=== PATIENT | female | born 1935 | race Caucasian/White ===

== ENCOUNTER 2021-09-20 20:24 | Inpatient (IN) | payer MEDICARE ==
[2021-09-20] MEDS ORDERED: ASPIRIN 81 MG PO STA (20:56)
--- NOTE | 2021-09-20 21:04 | ED ---
General Adult HPI - General Chief complaint: Chest Pain Stated complaint: Chest Pain Time Seen by Provider: 09/20/21 20:48 Source: patient, EMS, RN notes reviewed Mode of arrival: EMS Limitations: no limitations - History of Present Illness Initial comments: 85-year-old female presents to the emergency department via EMS for evaluation of chest pain that resolved prior to arrival. Patient states she was at rest when she developed tightness in her chest that extended diffusely across the anterior chest and radiated down both arms. States she had some shortness of breath at that time, though no diaphoresis, dizziness, nausea, or vomiting. Has had some excessive belching. Reports history of CABG and subsequent stent placement. Takes an anti-hypertensive medication, but recently reduced it from three times daily to twice. Denies any other medication changes. - Related Data Home Medications Medication Instructions Recorded Confirmed Ascorbic Acid [Vitamin C] 1,000 mg PO DAILY 09/21/21 09/21/21 Aspirin [Adult Low Dose Aspirin EC] 81 mg PO DAILY 09/21/21 09/21/21 Calcium Carb/Vitamin D3/Vit K1 1 tab PO BID 09/21/21 09/21/21 [Calcium-Vit D3-K1 650 mg Chew] Cholecalciferol [Vitamin D3 (25 50 mcg PO DAILY 09/21/21 09/21/21 Mcg = 1000 Iu)] Co Q-10 100mg 100 mg PO DAILY 09/21/21 09/21/21 Ezetimibe [Zetia] 10 mg PO DAILY 09/21/21 09/21/21 Labetalol [Trandate] 100 mg PO BID 09/21/21 09/21/21 Levothyroxine Sodium [Synthroid] 112 mcg PO AC-[id number] 09/21/21 09/21/21 Vitamin B-12 Oral Drops 125mcg/Drop 125 mcg PO DAILY 09/21/21 09/21/21 Zinc Gluconate [Zinc] 50 mg PO DAILY 09/21/21 09/21/21 glipiZIDE [Glucotrol] 5 mg PO DAILY 09/21/21 09/21/21 Allergies Allergy/AdvReac Type Severity Reaction Status Date / Time amlodipine Allergy Unknown Verified 09/21/21 11:52 aspirin Allergy Unknown Verified 09/21/21 11:52 atorvastatin [From Lipitor] Allergy Unknown Verified 09/21/21 11:52 cephalexin Allergy Unknown Verified 09/21/21 11:52 ciprofloxacin Allergy Unknown Verified 09/21/21 11:52 colesevelam [From WelChol] Allergy Unknown Verified 09/21/21 11:52 contact metal agent Allergy Unknown Verified 09/21/21 11:52 doxycycline Allergy Unknown Verified 09/21/21 11:52 ezetimibe [From Zetia] Allergy Unknown Verified 09/21/21 11:52 Iodine and Iodide Containing Allergy Unknown Verified 09/21/21 11:52 Produc lanolin Allergy Unknown Verified 09/21/21 11:52 metformin Allergy Unknown Verified 09/21/21 11:52 nystatin [From Bio-Statin] Allergy Unknown Verified 09/21/21 11:52 Penicillins Allergy Unknown Verified 09/21/21 11:52 pioglitazone [From Actos] Allergy Unknown Verified 09/21/21 11:52 rosuvastatin [From Crestor] Allergy Unknown Verified 09/21/21 11:52 [id number]-HzA Reductase Allergy Unknown Verified 09/21/21 11:52 Inhibitor Sulfa (Sulfonamide Allergy Unknown Verified 09/21/21 11:52 Antibiotics) baking soda Allergy Unknown Uncoded 09/21/21 11:53 clonidine patch Allergy Unknown Uncoded 09/21/21 11:53 metal Allergy Unknown Uncoded 09/21/21 11:54 vitron-c Allergy Unknown Uncoded 09/21/21 11:55 Review of Systems ROS Statement: Those systems with pertinent positive or pertinent negative responses have been documented in the HPI. ROS Other: All systems not noted in ROS Statement are negative. Past Medical History Additional Past Medical History / Comment(s): bypass 2002, stent 2013, History of Any Multi-Drug Resistant Organisms: None Reported Past Surgical History: Coronary Bypass/CABG Past Psychological History: No Psychological Hx Reported Smoking Status: Never smoker Past Alcohol Use History: None Reported Past Drug Use History: None Reported - Past Family History Father Family Medical History: Diabetes Mellitus Mother Family Medical History: CVA/TIA General Exam Limitations: no limitations (This is a pleasant well-developed, well-nourished female in no acute distress. Initial temperature 97.8, respirations 16, blood pressure 176/107, pulse ox 93% on room air, recheck 95% room air.) General appearance: alert, in no apparent distress Eye exam: Present: normal appearance, PERRL, EOMI. Absent: scleral icterus, conjunctival injection, periorbital swelling ENT exam: Present: normal exam, normal oropharynx, mucous membranes moist Respiratory exam: Present: normal lung sounds bilaterally. Absent: respiratory distress, wheezes, rales, rhonchi, stridor, chest wall tenderness Cardiovascular Exam: Present: regular rate, normal rhythm, normal heart sounds. Absent: systolic murmur, diastolic murmur, rubs, gallop, clicks GI/Abdominal exam: Present: soft, normal bowel sounds. Absent: distended, ten derness, guarding, rebound, rigid Extremities exam: Present: normal inspection, full ROM, normal capillary refill. Absent: tenderness, pedal edema, joint swelling, calf tenderness Neurological exam: Present: alert, oriented X3, CN II-XII intact, normal gait Psychiatric exam: Present: normal affect, normal mood Skin exam: Present: warm, dry, intact, normal color. Absent: rash Course Vital Signs 09/20/21 09/20/21 09/20/21 20:32 22:41 23:01 Temperature 97.8 F Pulse Rate 84 81 93 Respiratory 16 16 16 Rate Blood Pressure 176/107 174/104 133/88 O2 Sat by Pulse 93 L 93 L 92 L Oximetry 09/21/21 09/21/21 03:47 04:33 Temperature Pulse Rate 81 76 Respiratory 16 16 Rate Blood Pressure 147/93 149/90 O2 Sat by Pulse 97 97 Oximetry - Reevaluation(s) Reevaluation #1: 09/20/21 22:30 This patient's care was discussed with my attending, Dr. Pichardo who is present at bedside to assess patient. She remains comfortable with no complaints of pain at this time. Patient is updated on admission plan of care. Medical Decision Making - Medical Decision Making This is an 85-year-old female with a past medical history of CAD, 2 vessel CABG, cardiac stents, and hypertension who presents to the emergency Department with complaints of diffuse chest pain that radiated down both arms. Patient was given sublingual nitro in route and pain resolved prior to arrival. Upon exam, patient is resting comfortably and in no acute distress. She does have mild increased shortness of breath with activity, but physical exam findings are otherwise unremarkable. Laboratory studies were obtained showing an elevated d- dimer (1.44) and elevated troponin (2.160). Her chest x-ray shows cardiomegaly and mild pulmonary vascular congestion. BNP is 622. Given patient's presenting hypertension and initial complaint of chest pain extending to both arms, CT was ordered showing presence of 4.9 cm aneurysm of the ascending aorta with no evidence of dissection. No pulmonary embolism. Patient was hypertensive upon arrival. She was given sublingual nitro, metoprolol, and Nitropaste was applied. Patient remained pain-free. Calculated HEARTScore high. She was heparinized and admitted for further evaluation and treatment. Attending: Marino - Lab Data Result diagrams: 09/20/21 20:36 09/20/21 20:36 Lab Results 09/20/21 09/20/21 09/20/21 Range/Units 20:36 20:36 20:36 WBC 9.1 (3.8-10.6) k/uL RBC 4.58 (3.80-5.40) m/uL Hgb 13.0 (11.4-16.0) gm/dL Hct 41.8 (34.0-46.0) % MCV 91.3 (80.0-100.0) fL MCH 28.4 (25.0-35.0) pg MCHC 31.1 (31.0-37.0) g/dL RDW 13.7 (11.5-15.5) % Plt Count 180 (150-450) k/uL MPV 8.1 Neutrophils % 62 % Lymphocytes % 23 % Monocytes % 9 % Eosinophils % 3 % Basophils % 1 % Neutrophils # 5.6 (1.3-7.7) k/uL Lymphocytes # 2.1 (1.0-4.8) k/uL Monocytes # 0.8 (0-1.0) k/uL Eosinophils # 0.2 (0-0.7) k/uL Basophils # 0.1 (0-0.2) k/uL PT 11.0 (9.0-12.0) sec INR 1.0 (<1.2) APTT 20.5 L (22.0-30.0) sec D-Dimer (<0.60) mg/L FEU Sodium 134 L (137-145) mmol/L Potassium 4.2 (3.5-5.1) mmol/L Chloride 105 (98-107) mmol/L Carbon Dioxide 24 (22-30) mmol/L Anion Gap 5 mmol/L BUN 18 H (7-17) mg/dL Creatinine 0.83 (0.52-1.04) mg/dL Est GFR (CKD-EPI)AfAm 74 (>60 ml/min/1.73 sqM) Est GFR (CKD-EPI)NonAf 64 (>60 ml/min/1.73 sqM) Glucose 188 H (74-99) mg/dL Calcium 8.4 (8.4-10.2) mg/dL Magnesium 1.5 L (1.6-2.3) mg/dL Total Bilirubin 0.4 (0.2-1.3) mg/dL AST 30 (14-36) U/L ALT 17 (4-34) U/L Alkaline Phosphatase 76 (38-126) U/L Troponin I (0.000-0.034) ng/mL NT-Pro-B Natriuret Pep pg/mL Total Protein 6.2 L (6.3-8.2) g/dL Albumin 3.5 (3.5-5.0) g/dL Lipase 114 (23-300) U/L Urine Color Urine Appearance (Clear) Urine pH (5.0-8.0) Ur Specific Napoleon (1.001-1.035) Urine Protein (Negative) Urine Glucose (UA) (Negative) Urine Ketones (Negative) Urine Blood (Negative) Urine Nitrite (Negative) Urine Bilirubin (Negative) Urine Urobilinogen (<2.0) mg/dL Ur Leukocyte Esterase (Negative) Urine RBC (0-5) /hpf Urine WBC (0-5) /hpf Urine WBC Clumps (None) /hpf Ur Squamous Epith Cells (0-4) /hpf Urine Bacteria (None) /hpf Hyaline Casts (0-2) /lpf Urine Mucus (None) /hpf 09/20/21 09/20/21 09/20/21 Range/Units 20:36 20:36 20:36 WBC (3.8-10.6) k/uL RBC (3.80-5.40) m/uL Hgb (11.4-16.0) gm/dL Hct (34.0-46.0) % MCV (80.0-100.0) fL MCH (25.0-35.0) pg MCHC (31.0-37.0) g/dL RDW (11.5-15.5) % Plt Count (150-450) k/uL MPV Neutrophils % % Lymphocytes % % Monocytes % % Eosinophils % % Basophils % % Neutrophils # (1.3-7.7) k/uL Lymphocytes # (1.0-4.8) k/uL Monocytes # (0-1.0) k/uL Eosinophils # (0-0.7) k/uL Basophils # (0-0.2) k/uL PT (9.0-12.0) sec INR (<1.2) APTT (22.0-30.0) sec D-Dimer 1.44 H (<0.60) mg/L FEU Sodium (137-145) mmol/L Potassium (3.5-5.1) mmol/L Chloride (98-107) mmol/L Carbon Dioxide (22-30) mmol/L Anion Gap mmol/L BUN (7-17) mg/dL Creatinine (0.52-1.04) mg/dL Est GFR (CKD-EPI)AfAm (>60 ml/min/1.73 sqM) Est GFR (CKD-EPI)NonAf (>60 ml/min/1.73 sqM) Glucose (74-99) mg/dL Calcium (8.4-10.2) mg/dL Magnesium (1.6-2.3) mg/dL Total Bilirubin (0.2-1.3) mg/dL AST (14-36) U/L ALT (4-34) U/L Alkaline Phosphatase (38-126) U/L Troponin I 2.160 H* (0.000-0.034) ng/mL NT-Pro-B Natriuret Pep 622 pg/mL Total Protein (6.3-8.2) g/dL Albumin (3.5-5.0) g/dL Lipase (23-300) U/L Urine Color Urine Appearance (Clear) Urine pH (5.0-8.0) Ur Specific Napoleon (1.001-1.035) Urine Protein (Negative) Urine Glucose (UA) (Negative) Urine Ketones (Negative) Urine Blood (Negative) Urine Nitrite (Negative) Urine Bilirubin (Negative) Urine Urobilinogen (<2.0) mg/dL Ur Leukocyte Esterase (Negative) Urine RBC (0-5) /hpf Urine WBC (0-5) /hpf Urine WBC Clumps (None) /hpf Ur Squamous Epith Cells (0-4) /hpf Urine Bacteria (None) /hpf Hyaline Casts (0-2) /lpf Urine Mucus (None) /hpf 09/20/21 Range/Units 22:08 WBC (3.8-10.6) k/uL RBC (3.80-5.40) m/uL Hgb (11.4-16.0) gm/dL Hct (34.0-46.0) % MCV (80.0-100.0) fL MCH (25.0-35.0) pg MCHC (31.0-37.0) g/dL RDW (11.5-15.5) % Plt Count (150-450) k/uL MPV Neutrophils % % Lymphocytes % % Monocytes % % Eosinophils % % Basophils % % Neutrophils # (1.3-7.7) k/uL Lymphocytes # (1.0-4.8) k/uL Monocytes # (0-1.0) k/uL Eosinophils # (0-0.7) k/uL Basophils # (0-0.2) k/uL PT (9.0-12.0) sec INR (<1.2) APTT (22.0-30.0) sec D-Dimer (<0.60) mg/L FEU Sodium (137-145) mmol/L Potassium (3.5-5.1) mmol/L Chloride (98-107) mmol/L Carbon Dioxide (22-30) mmol/L Anion Gap mmol/L BUN (7-17) mg/dL Creatinine (0.52-1.04) mg/dL Est GFR (CKD-EPI)AfAm (>60 ml/min/1.73 sqM) Est GFR (CKD-EPI)NonAf (>60 ml/min/1.73 sqM) Glucose (74-99) mg/dL Calcium (8.4-10.2) mg/dL Magnesium (1.6-2.3) mg/dL Total Bilirubin (0.2-1.3) mg/dL AST (14-36) U/L ALT (4-34) U/L Alkaline Phosphatase (38-126) U/L Troponin I (0.000-0.034) ng/mL NT-Pro-B Natriuret Pep pg/mL Total Protein (6.3-8.2) g/dL Albumin (3.5-5.0) g/dL Lipase (23-300) U/L Urine Color Light Yellow Urine Appearance Clear (Clear) Urine pH 6.0 (5.0-8.0) Ur Specific Napoleon 1.015 (1.001-1.035) Urine Protein Negative (Negative) Urine Glucose (UA) Trace H (Negative) Urine Ketones Negative (Negative) Urine Blood Negative (Negative) Urine Nitrite Negative (Negative) Urine Bilirubin Negative (Negative) Urine Urobilinogen <2.0 (<2.0) mg/dL Ur Leukocyte Esterase Large H (Negative) Urine RBC 1 (0-5) /hpf Urine WBC 26 H (0-5) /hpf Urine WBC Clumps Rare H (None) /hpf Ur Squamous Epith Cells 1 (0-4) /hpf Urine Bacteria Rare H (None) /hpf Hyaline Casts 1 (0-2) /lpf Urine Mucus Rare H (None) /hpf - EKG Data EKG shows normal: sinus rhythm Rate: normal EKG Comments: EKG obtained at 2030 shows sinus rhythm with septal myocardial infarction of indeterminate age. Ventricular rate 83, LA interval 191, QRS duration 80, QT/QTC 344/384. Interpretation abnormal ECG. - Radiology Data Radiology results: report reviewed, image reviewed Two-view chest x-ray was obtained. Report was reviewed in its entirety. Impression per Dr. Gil is cardiomegaly and mild pulmonary vascular congestion. Correlate with BNP for congestive heart failure. CT angiogram aorta was obtained. Report was reviewed in its entirety. Impression per Dr. Yun is atherosclerotic vascular disease. 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 They're agreeable information. Aneurysm of the ascending aorta. No evidence of pulmonary embolism. Colonic diverticulosis without diverticulitis. Pulmonary interstitial fibrosis and subsegmental atelectasis. Disposition Clinical Impression: Chest pain, NSTEMI (non-ST elevated myocardial infarction) Disposition: ADMITTED IP TO THIS HOSP Condition: Serious Is patient prescribed a controlled substance at d/c from ED?: No Decision Date: 09/21/21
--- NOTE | 2021-09-20 21:22 | XR ---
EXAMINATION TYPE: XR chest 2V DATE OF EXAM: 09/20/2021 9:15 PM COMPARISON: None TECHNIQUE: XR chest 2V Frontal and lateral views of the chest. CLINICAL INDICATION:Female, 85 years old with history of Chest Pain; FINDINGS: Lungs/Pleura: There is no evidence of pleural effusion, focal consolidation, or pneumothorax. Pulmonary vascularity: Mild pulmonary vascular congestion. Heart/mediastinum: Enlarged cardiomediastinal silhouette. Atherosclerotic calcifications are seen in the aorta. Musculoskeletal: Multiple level degenerative disc disease changes seen throughout the spine. Pectus e xcavatum. No acute osseous abnormality. IMPRESSION: Cardiomegaly and mild pulmonary vascular congestion. Correlate with BNP for congestive heart failure.
[2021-09-20 21:23] LABS: Basophils # (A) 0.1 k/uL (0-0.2); Basophils % (A) 1 %; Eosinophils # (A) 0.2 k/uL (0-0.7); Eosinophils % (A) 3 %; HCT 41.8 % (34.0-46.0); Lymphocytes # (A) 2.1 k/uL (1.0-4.8); Lymphocytes % (A) 23 %; MCH 28.4 pg (25.0-35.0); MCHC 31.1 g/dL (31.0-37.0); MCV 91.3 fL (80.0-100.0); Mean Platelet Volume 8.1; Monocytes # (A) 0.8 k/uL (0-1.0); Monocytes % (A) 9 %; Neutrophils # (A) 5.6 k/uL (1.3-7.7); Neutrophils % (A) 62 %; Platelet Count 180 k/uL (150-450); RBC 4.58 m/uL (3.80-5.40); RDW 13.7 % (11.5-15.5); WBC 9.1 k/uL (3.8-10.6)
[2021-09-20 22:00] LABS: Albumin 3.5 g/dL (3.5-5.0); Calcium 8.4 mg/dL (8.4-10.2); Magnesium 1.5 mg/dL (1.6-2.3); Potassium 4.2 mmol/L (3.5-5.1); Total Bilirubin 0.4 mg/dL (0.2-1.3); Total Protein 6.2 g/dL (6.3-8.2)
[2021-09-20 22:12] LABS: Partial Thromboplastin Time 20.5 sec (22.0-30.0)
[2021-09-20] MEDS ORDERED: NITROGLYCERIN SL TABS 0.4 MG TAB SUBLINGUAL STA (22:33)
[2021-09-20 22:55] LABS: Appearance,Urine Clear (Clear); Bacteria,Urine Rare /hpf; Bilirubin,Urine Negative (Negative); Blood,Urine Negative (Negative); Color,Urine Light Yellow; Glucose,Urine (UA) Trace (Negative); Hyaline Casts,Urine 1 /lpf (0-2); Ketones,Urine Negative (Negative); Leukocyte Esterase,Urine Large (Negative); Mucus,Urine Rare /hpf; Nitrite,Urine Negative (Negative); Protein,Urine Negative (Negative); RBC,Urine 1 /hpf (0-5); Specific Gravity,Urine 1.015 (1.001-1.035); Squamous Epithelial Cell,Urine 1 /hpf (0-4); Urobilinogen,Urine <2.0 mg/dL (<2.0); WBC,Urine 26 /hpf (0-5)
[2021-09-20] MEDS ORDERED: NITROGLYCERIN OINT 1 INCH/GM PACKET TOPICAL STA (23:50)
[2021-09-20] MEDS ORDERED: METOPROLOL TARTRATE 25 MG TAB PO STA (23:51)
[2021-09-21] MEDS ORDERED: methylPREDNISolone SOD SUCCI 125 MG/2 ML VIAL IV STA (00:58)
[2021-09-21] MEDS ORDERED: diphenhydrAMINE 50 MG/ML 1 ML VIAL IVP STA (00:58)
[2021-09-21] MEDS ORDERED: FAMOTIDINE 20 MG/2 ML VIAL IV STA (00:58)
[2021-09-21] MEDS ORDERED: SODIUM CHLORIDE 0.9% 1,000 ML IV STA (00:59)
--- NOTE | 2021-09-21 02:28 | CT ---
EXAMINATION TYPE: CT angio thor/abd pel aorta DATE OF EXAM: 09/21/2021 COMPARISON: None HISTORY: High D dimer, chest pain. CT DLP: 1232.3 mGycm Automated exposure control for dose reduction was used. CONTRAST: Images obtained from the thoracic inlet to the floor of the pelvis with the IV contrast. There are Th ree-D postprocessed images. There is some mild interstitial infiltrates and atelectasis in the posterior lung castelan. There is pe ctus excavatum chest deformity. Heart is borderline enlarged. There is some deformity of the right ve ntricle related to pectus deformity. There is 4.9 cm aneurysm of the ascending aorta. No dissection. No evidence of filling defect in the pulmonary arteries. There are a few paratracheal lymph nodes arminda suring less than 1 cm. There are no hilar masses. Liver spleen and stomach pancreas appear intact. The bile ducts are not dilated. Gallbladder appears normal. There is no adrenal mass. Kidneys show satisfactory contrast opacification. There is no hydro nephrosis. Ureters are not dilated. No retroperitoneal adenopathy. The bladder distends smoothly. No inguinal hernia. No free fluid in the pelvis. There are multiple sigmoid diverticula. No diverticulit is. There is no mesenteric edema. No ascites or free air. No sign of a bowel obstruction. No sign of thic kened appendix. Appendix is posterior and appears normal. The thoracic and lumbar vertebra appear int act. No compression fracture. There is narrowing at L4-5 and L5-S1 disc spaces. The bony pelvis is in tact. There is some plaque formation in the abdominal aorta. No aneurysm. There is arterial flow in the yamilet iac artery and superior mesenteric artery. There is arterial flow in both renal arteries. There is ar terial flow in the iliac and femoral arteries. There is variable plaque formation. There is 75% steno sis at the origin of the right renal artery. There is up to 35% stenosis in the proximal femoral judith igor. No evidence of arterial aneurysm or dissection. IMPRESSION: Atherosclerotic vascular disease. Stenosis of the right renal artery and the proximal femoral arterie s as above. Variable plaque formation. Aneurysm of the ascending aorta. No evidence of pulmonary embolism. Colonic diverticulosis without diverticulitis. Pulmonary interstitial fibrosis and subsegmental atele ctasis.
[2021-09-21] MEDS ORDERED: HEPARIN SODIUM 1,000 UN/ML (10ML VL) IV ONE (03:20)
[2021-09-21] MEDS ORDERED: HEPARIN SODIUM 1,000 UN/ML (10ML VL) IV PRN (03:20)
[2021-09-21] MEDS: HEPARIN SOD,PORK IN 0.45% NACL 25,000 UNIT in 0.45% NACL 1 250ML.BAG IV SCH (03:46)
[2021-09-21] MEDS ORDERED: NITROGLYCERIN SL TABS 0.4 MG TAB SUBLINGUAL PRN (03:55)
[2021-09-21] MEDS ORDERED: MORPHINE SULFATE 2 MG/ML SYRINGE IVP PRN (03:55)
[2021-09-21 06:47] LABS: Glucose,Whole Blood 203 mg/dL (70-110)
[2021-09-21] MEDS ORDERED: METOPROLOL TARTRATE 25 MG TAB PO SCH (09:00)
[2021-09-21] MEDS ORDERED: METOPROLOL TARTRATE 25 MG TAB PO STA (09:40)
[2021-09-21] MEDS: NITROGLYCERIN OINT 1 INCH/GM PACKET TOPICAL SCH ×3 (09:57→23:25)
[2021-09-21 11:53] LABS: Glucose,Whole Blood 332 mg/dL (70-110)
--- NOTE | 2021-09-21 14:07 | CONS ---
CONSULTATION CHIEF COMPLAINT: Chest pain HISTORY OF PRESENT ILLNESS: Ely Villagomez is an 85-year-old lady with history of coronary artery disease status post CABG many years ago in [place], hypertension, and dyslipidemia, and hypothyroidism who spends 6 months here in [place] and 6 months in [place], was at the [facility] and developed chest pain at rest. She describes it as a moderate precordial chest discomfort that radiated to her left arm and had mild shortness of breath. She came to the emergency room, where she had an EKG that did not reveal acute ischemic changes. The first set of troponin was elevated at 2.1, was treated with intravenous heparin. She already became chest pain free following the sublingual nitroglycerin that she was given in the field. She has remained chest pain free since. She had a CT scan of the chest that showed ascending aortic aneurysm measuring about 4.9 cm and because of an elevated D-dimer, she had a CT scan that did not reveal any pulmonary embolism. At the time of my evaluation this morning, she is pain free, hemodynamically stable and in no apparent distress. My plan is to perform a cardiac catheterization hopefully tomorrow once I am able to get hold of her surgical report. I will also obtain a 2D echo to assess her LV function. In the meantime, we will treat her with aspirin, nitrates, beta blockers, continue the IV heparin. Resume the Zetia. I am not quite sure if she was intolerant of statins in the past. PAST MEDICAL HISTORY: Significant for coronary artery disease status post CABG, hypothyroidism, non-insulin- dependent diabetes. MEDICATIONS: Medications at home include: Glucotrol 5 mg b.i.d., Synthroid, Zetia, Trandate, and aspirin. ALLERGIES: She has multiple drug allergies, they are charted and I reviewed them. REVIEW OF SYSTEMS: 14 out of 14 review of systems has been performed and pertinents are as documented. SOCIAL HISTORY: Negative for smoking. FAMILY HISTORY: Negative for premature coronary artery disease. EXAM: She is afebrile. Heart rate is 83 beats per minute. Blood pressure is 168/94, respiratory 16, O2 saturation is 96% on 2 L. There is no jugular venous distention. Carotid upstroke is normal. There is no bruit. Chest exam reveals good air entry bilaterally. Heart exam reveals first and second heart sounds. A systolic murmur at the apex. Abdomen is soft, nontender. Examination of extremities did not reveal any edema. Peripheral pulses are felt. LAB: Showed a hemoglobin of 13, platelet count is 130. D-dimer is 1.4. Potassium is 4.2, creatinine is 0.8. Troponins are elevated. ASSESSMENT: 1. Acute non ST segment elevation myocardial infarction. 2. Hypertension. 3. History of coronary artery disease status post bypass. 4. Ascending aortic aneurysm. PLAN: I will obtain a 2D echo. Continue the patient on optimal therapy. Cardiac catheterization tomorrow. MMODL / IJN: [id number] /
--- NOTE | 2021-09-21 14:50 | P.HPIM ---
History of Present Illness H&P Date: 09/21/21 This is a pleasant 85-year-old lady, patient of Dr. Min Will. She has underlying history of hyperlipidemia, CAD with prior CABG, 2002 with stent thousand 14, history of hypertension comes in from home via ambulance, as she didn't complain of chest pressure, across the chest wall, that radiated both arms, there is some shortness of breath, with no diaphoresis, no palpitations no lightheadedness no nausea no vomiting. Patient does not have any dysphagia, occasionally has some bloating, patient was given nitroglycerin, which has relieved the problem. Incidentally, in the imaging emergency room CT ruled out PE, however she has a 4.9 cm ascending aortic aneurysm without evidence of dissection as well as stenosis of right renal artery, proximal femoral artery. BNP of 622, chest x- ray shows no pneumonia, has cardiomegaly, mild pulmonary vascular congestion, troponin elevated 2.16, d-dimer elevated, 1.44 patient admitted, for suspected end STEMI patient is currently chest pain-free, on IV heparin, cardiology on consult. Aspirin, metoprolol and morphine when necessary ASSESSMENT AND PLAN 1. End STEMI, with elevated troponin, typical symptoms of angina, relieved with nitroglycerin, patient has risk factors to include prior CAD, with prior CABG in the past. Patient will be seen consultation by cardiology, echocardiogram, aspirin and metoprolol statins and he did, however documented list for ALLERGIES, to statins, patient will need most likely PSK9 treatments likely prosthetic, this can be managed as an outpatient plan for cardiac cath, most lik natali name currently on IV heparin, cardiac cath most likely would be needed, prior to discharge. Ruled out PE 2. CAD with prior CABG, with 2002 CABG, stent 2013 patient is not on a statin, prior to admission secondary to multiple ALLERGIES. Patient will need PSK 9 inhibition, like Repatha or praluent continue metoprolol and Zetia check lipid panel 3. Diabetes mellitus type 2, on Glucotrol 5 mg daily check A1c 4. Hypothyroidism on levothyroxine 112 g daily check TSH 4. ascending aortic aneurysm 5 75% Stenosis of the right renal artery, outpatient recommendation for vascular evaluation, for renal artery stenosis most likely chronic, might need an ultrasound, kidneys to evaluate renal size and atrophy creatinine currently is normal 6. 35% stenosis, proximal femoral arteries as above GI prophylaxis DVT prophylaxis Review of Systems Constitutional: Reports as per HPI, Denies chills, Denies chronic pain, Denies fatigue, Denies poor appetite, Denies sweats, Denies weight loss Ears, nose, mouth and throat: Reports as per HPI, Denies dysphagia, Denies hoarseness, Denies neck lump, Denies nose pain, Denies post-nasal drip, Denies sore throat, Denies voice changes Cardiovascular: Reports chest pain, Reports decreased exercise tolerance, Reports dyspnea on exertion, Denies claudication, Denies palpitations, Denies shortness of breath, Denies syncope Respiratory: Reports as per HPI, Denies pain, Denies pain on inspiration, Denies sleep apnea Gastrointestinal: Reports as per HPI, Reports belching, Denies abdominal pain, Denies bloating, Denies hematochezia, Denies indigestion, Denies melena Genitourinary: Reports as per HPI, Denies urge incontinence, Denies urgency, Denies urinary frequency, Denies vaginal discharge, Denies vaginal odor Menstruation: Reports as per HPI Musculoskeletal: Denies arm numbness/tingling, Denies atrophy, Denies neck pain Integumentary: Reports as per HPI, Denies unusual bruising, Denies wounds Neurological: Reports as per HPI, Denies aphasia, Denies ataxia, Denies balance difficulties, Denies change in mentation, Denies loss of vision, Denies migraines Psychiatric: Reports as per HPI, Reports change in libido, Reports insomnia, Denies change in appetite, Denies change in sleep habits Endocrine: Reports as per HPI Hematologic/Lymphatic: Reports as per HPI Allergic/Immunologic: Reports as per HPI, Reports allergic rhinitis, Denies anaphylaxis, Denies urticaria Past Medical History Past Medical History: Diabetes Mellitus, Hypertension, Thyroid Disorder Additional Past Medical History / Comment(s): bypass 2002, stent 2013, History of Any Multi-Drug Resistant Organisms: None Reported Past Surgical History: Coronary Bypass/CABG Past Psychological History: No Psychological Hx Reported Smoking Status: Never smoker Past Alcohol Use History: None Reported Past Drug Use History: None Reported - Past Family History Father Family Medical History: Diabetes Mellitus Mother Family Medical History: CVA/TIA Medications and Allergies Home Medications Medication Instructions Recorded Confirmed Type Ascorbic Acid [Vitamin C] 1,000 mg PO DAILY 09/21/21 09/21/21 History Aspirin [Adult Low Dose Aspirin EC] 81 mg PO DAILY 09/21/21 09/21/21 History Calcium Carb/Vitamin D3/Vit K1 1 tab PO BID 09/21/21 09/21/21 History [Calcium-Vit D3-K1 650 mg Chew] Cholecalciferol [Vitamin D3 (25 50 mcg PO DAILY 09/21/21 09/21/21 History Mcg = 1000 Iu)] Co Q-10 100mg 100 mg PO DAILY 09/21/21 09/21/21 History Ezetimibe [Zetia] 10 mg PO DAILY 09/21/21 09/21/21 History Labetalol [Trandate] 100 mg PO BID 09/21/21 09/21/21 History Levothyroxine Sodium [Synthroid] 112 mcg PO AC-[id number] 09/21/21 09/21/21 History Vitamin B-12 Oral Drops 125mcg/Drop 125 mcg PO DAILY 09/21/21 09/21/21 History Zinc Gluconate [Zinc] 50 mg PO DAILY 09/21/21 09/21/21 History glipiZIDE [Glucotrol] 5 mg PO DAILY 09/21/21 09/21/21 History Allergies Allergy/AdvReac Type Severity Reaction Status Date / Time amlodipine Allergy Unknown Verified 09/21/21 11:52 aspirin Allergy Unknown Verified 09/21/21 11:52 atorvastatin [From Lipitor] Allergy Unknown Verified 09/21/21 11:52 cephalexin Allergy Unknown Verified 09/21/21 11:52 ciprofloxacin Allergy Unknown Verified 09/21/21 11:52 colesevelam [From WelChol] Allergy Unknown Verified 09/21/21 11:52 contact metal agent Allergy Unknown Verified 09/21/21 11:52 doxycycline Allergy Unknown Verified 09/21/21 11:52 ezetimibe [From Zetia] Allergy Unknown Verified 09/21/21 11:52 Iodine and Iodide Containing Allergy Unknown Verified 09/21/21 11:52 Produc lanolin Allergy Unknown Verified 09/21/21 11:52 metformin Allergy Unknown Verified 09/21/21 11:52 nystatin [From Bio-Statin] Allergy Unknown Verified 09/21/21 11:52 Penicillins Allergy Unknown Verified 09/21/21 11:52 pioglitazone [From Actos] Allergy Unknown Verified 09/21/21 11:52 rosuvastatin [From Crestor] Allergy Unknown Verified 09/21/21 11:52 Fuxsujx-JJG-AxM Reductase Allergy Unknown Verified 09/21/21 11:52 Inhibitor Sulfa (Sulfonamide Allergy Unknown Verified 09/21/21 11:52 Antibiotics) baking soda Allergy Unknown Uncoded 09/21/21 11:53 clonidine patch Allergy Unknown Uncoded 09/21/21 11:53 metal Allergy Unknown Uncoded 09/21/21 11:54 vitron-c Allergy Unknown Uncoded 09/21/21 11:55 Physical Exam Vitals: Vital Signs Temp Pulse Pulse Resp BP BP Pulse Ox 09/21/21 08:00 97.7 F 83 16 168/95 96 09/21/21 05:00 97.6 F 87 18 165/78 94 L 09/21/21 04:33 76 16 149/90 97 09/21/21 03:47 81 16 147/93 97 09/20/21 23:01 93 16 133/88 92 L 09/20/21 22:41 81 16 174/104 93 L 09/20/21 20:32 97.8 F 84 16 176/107 93 L Intake and Output 09/20/21 09/21/21 09/21/21 22:59 06:59 14:59 Other: Weight 72 kg 72 kg Results CBC & Chem 7: 09/20/21 20:36 09/20/21 20:36 Labs: Abnormal Lab Results - Last 24 Hours (Table) 09/20/21 09/20/21 09/20/21 Range/Units 20:36 20:36 20:36 APTT 20.5 L (22.0-30.0) sec D-Dimer (<0.60) mg/L FEU Sodium 134 L (137-145) mmol/L BUN 18 H (7-17) mg/dL Glucose 188 H (74-99) mg/dL POC Glucose (mg/dL) (70-110) mg/dL Magnesium 1.5 L (1.6-2.3) mg/dL Troponin I 2.160 H* (0.000-0.034) ng/mL Total Protein 6.2 L (6.3-8.2) g/dL Urine Glucose (UA) (Negative) Ur Leukocyte Esterase (Negative) Urine WBC (0-5) /hpf Urine WBC Clumps (None) /hpf Urine Bacteria (None) /hpf Urine Mucus (None) /hpf 09/20/21 09/20/21 09/21/21 Range/Units 20:36 22:08 05:25 APTT (22.0-30.0) sec D-Dimer 1.44 H (<0.60) mg/L FEU Sodium (137-145) mmol/L BUN (7-17) mg/dL Glucose (74-99) mg/dL POC Glucose (mg/dL) (70-110) mg/dL Magnesium (1.6-2.3) mg/dL Troponin I 4.810 H* (0.000-0.034) ng/mL Total Protein (6.3-8.2) g/dL Urine Glucose (UA) Trace H (Negative) Ur Leukocyte Esterase Large H (Negative) Urine WBC 26 H (0-5) /hpf Urine WBC Clumps Rare H (None) /hpf Urine Bacteria Rare H (None) /hpf Urine Mucus Rare H (None) /hpf 09/21/21 Range/Units 06:35 APTT (22.0-30.0) sec D-Dimer (<0.60) mg/L FEU Sodium (137-145) mmol/L BUN (7-17) mg/dL Glucose (74-99) mg/dL POC Glucose (mg/dL) 203 H (70-110) mg/dL Magnesium (1.6-2.3) mg/dL Troponin I (0.000-0.034) ng/mL Total Protein (6.3-8.2) g/dL Urine Glucose (UA) (Negative) Ur Leukocyte Esterase (Negative) Urine WBC (0-5) /hpf Urine WBC Clumps (None) /hpf Urine Bacteria (None) /hpf Urine Mucus (None) /hpf Thrombosis Risk Factor Assmnt - Choose All That Apply Any of the Below Risk Factors Present?: Yes Each Factor Represents 1 point: Obesity (BMI >25) Other Risk Factors: Yes Each Risk Factor Represents 3 Points: Age 75 years or older Thrombosis Risk Factor Assessment Total Risk Factor Score: 4 Thrombosis Risk Factor Assessment Level: Moderate Risk
[2021-09-21] MEDS ORDERED: Magnesium Replacement Protocol 1 EACH MISC MISCELLANE PRN (15:02)
[2021-09-21 16:22] LABS: Glucose,Whole Blood 303 mg/dL (70-110)
[2021-09-21] MEDS: MAGNESIUM SULFATE-D5W PMX 1 GM in DEXTROSE/WATER 1 100ML.BAG IVPB SCH ×2 (17:59→23:23)
[2021-09-21] MEDS: MAGNESIUM OXIDE 400 MG TAB PO SCH (17:59)
[2021-09-21] MEDS: INSULIN ASPART (NovoLOG) 100 UNIT/ML VIAL SQ SCH ×2 (18:00→20:31)
[2021-09-21 20:01] LABS: Glucose,Whole Blood 235 mg/dL (70-110)
[2021-09-21] MEDS: CALCIUM CARB-VIT D 500 MG-5 MCG TAB PO SCH (20:31)
[2021-09-21] MEDS: METOPROLOL TARTRATE 50 MG TAB PO SCH (20:31)
[2021-09-21] MEDS ORDERED: LABETALOL 100 MG TAB PO SCH (21:00)
[2021-09-22 05:59] LABS: Glucose,Whole Blood 159 mg/dL (70-110)
[2021-09-22] MEDS ORDERED: HEPARIN SODIUM,PORCINE 10,000 UNIT in SODIUM CHLORIDE 0.9% 1,000 ML IRRIGATION PRN (07:00)
[2021-09-22] MEDS ORDERED: HEPARIN SODIUM,PORCINE 2,500 UNIT in SODIUM CHLORIDE 0.9% 250 ML IRRIGATION PRN (07:00)
[2021-09-22] MEDS: LEVOTHYROXINE 112 MCG TAB PO SCH (07:03)
[2021-09-22] MEDS: INSULIN ASPART (NovoLOG) 100 UNIT/ML VIAL SQ SCH ×4 (07:03→22:06)
[2021-09-22] MEDS ORDERED: ALPRAZolam 0.5 MG TAB PO PRN (07:11)
[2021-09-22] MEDS ORDERED: ALPRAZolam 0.25 MG TAB PO PRN (07:11)
[2021-09-22 07:39] LABS: Basophils % (A) 0 %; Eosinophils % (A) 0 %; HCT 41.7 % (34.0-46.0); HGB 13.2 gm/dL (11.4-16.0); Lymphocytes % (A) 11 %; MCH 28.8 pg (25.0-35.0); MCHC 31.5 g/dL (31.0-37.0); MCV 91.3 fL (80.0-100.0); Mean Platelet Volume 8.6; Monocytes # (A) 1.1 k/uL (0-1.0); Monocytes % (A) 6 %; Neutrophils # (A) 15.1 k/uL (1.3-7.7); Neutrophils % (A) 81 %; Platelet Count 199 k/uL (150-450); RBC 4.57 m/uL (3.80-5.40); RDW 13.7 % (11.5-15.5); WBC 18.6 k/uL (3.8-10.6)
[2021-09-22 08:06] LABS: African American GFR (CKD) 73 (>60 ml/min/1.73 sqM); Anion Gap 5 mmol/L; Blood Urea Nitrogen 22 mg/dL (7-17); Calcium 9.4 mg/dL (8.4-10.2); Carbon Dioxide 27 mmol/L (22-30); Chloride 102 mmol/L (98-107); Glucose 164 mg/dL (74-99); Magnesium 2.2 mg/dL (1.6-2.3); Non-African American GFR(CKD) 63 (>60 ml/min/1.73 sqM); Potassium 4.5 mmol/L (3.5-5.1); Sodium 134 mmol/L (137-145)
[2021-09-22] MEDS ORDERED: diphenhydrAMINE 50 MG/ML 1 ML VIAL IVP ONE ×2 (08:30→11:28)
[2021-09-22] MEDS ORDERED: methylPREDNISolone SOD SUCCI 125 MG/2 ML VIAL IV ONE ×2 (08:30→11:28)
[2021-09-22] MEDS ORDERED: predniSONE 50 MG TAB PO ONE (08:30)
[2021-09-22] MEDS: SODIUM CHLORIDE 0.9% 1,000 ML in EMPTY BAG 1 BAG IV SCH ×2 (08:58→22:07)
[2021-09-22] MEDS ORDERED: glipiZIDE 5 MG TAB PO SCH (09:00)
[2021-09-22] MEDS: EZETIMIBE 10 MG TAB PO SCH (09:00)
[2021-09-22] MEDS: MAGNESIUM OXIDE 400 MG TAB PO SCH (09:00)
[2021-09-22] MEDS ORDERED: ASPIRIN 325 MG TAB PO SCH (09:00)
[2021-09-22] MEDS ORDERED: NON FORMULARY DRUG (Co Q-10 100mg 100 MG) PO SCH (09:00)
[2021-09-22] MEDS: METOPROLOL TARTRATE 50 MG TAB PO SCH ×2 (09:00→22:06)
[2021-09-22] MEDS ORDERED: ASPIRIN 81 MG PO SCH (09:00)
[2021-09-22] MEDS: NITROGLYCERIN OINT 1 INCH/GM PACKET TOPICAL SCH (09:00)
[2021-09-22 09:03] LABS: T4, Free (Free Thyroxine) 1.76 ng/dL (0.78-2.19)
[2021-09-22] MEDS ORDERED: methylPREDNISolone SOD SUCCI 125 MG/2 ML VIAL ONE (11:07)
[2021-09-22] MEDS ORDERED: diphenhydrAMINE 50 MG/ML 1 ML VIAL ONE (11:07)
[2021-09-22] MEDS ORDERED: IV FLUID CONTINUATION 1,000 ML IV ONE (11:29)
[2021-09-22] MEDS ORDERED: fentaNYL (PF) 50 MCG/ML 2 ML AMP ONE (11:31)
[2021-09-22] MEDS: fentaNYL (PF) 50 MCG/ML 2 ML AMP IV ONE ×2 (11:34→11:38)
[2021-09-22] MEDS: MIDAZOLAM 2 MG/2 ML VIAL IV ONE ×2 (11:34→12:58)
[2021-09-22] MEDS ORDERED: LIDOCAINE 1% INJ 10MG/ML (30 ML VIAL-PF) SQ ONE (11:36)
[2021-09-22] MEDS ORDERED: IOPAMIDOL-370 125ML BTL INJ ONE (12:22)
[2021-09-22] MEDS ORDERED: HEPARIN SODIUM 1,000 UN/ML (10ML VL) ONE ×2 (12:25)
[2021-09-22] MEDS: HEPARIN SODIUM 1,000 UN/ML (10ML VL) IV ONE ×2 (12:34→13:26)
[2021-09-22] MEDS ORDERED: niCARdipine 25 MG/10 ML VIAL ONE (12:48)
[2021-09-22] MEDS ORDERED: HYDROmorphone 1 MG/ML 1 ML SYRINGE ONE (12:50)
[2021-09-22] MEDS ORDERED: HYDROmorphone 1 MG/ML 1 ML SYRINGE IVP ONE (12:52)
[2021-09-22] MEDS ORDERED: NITROGLYCERIN SL TABS 0.4 MG TAB SUBLINGUAL ONE ×2 (12:54→12:55)
[2021-09-22] MEDS: NITROGLYCERIN 1000MCG/10ML SYRINGE INTRACORON ONE ×2 (13:04→13:14)
[2021-09-22] MEDS: niCARdipine Syringe (1,000 mcg/10 mL) INTRACORON ONE ×2 (13:04→13:14)
[2021-09-22] MEDS ORDERED: CLOPIDOGREL 75 MG TAB ONE (13:20)
[2021-09-22] MEDS ORDERED: CLOPIDOGREL 75 MG TAB PO ONE (13:21)
[2021-09-22] MEDS ORDERED: IOPAMIDOL-370 100ML BTL INJ ONE (13:22)
[2021-09-22] MEDS ORDERED: ATROPINE SULFATE 0.1 MG/ML 10ML SYRINGE IV PRN (13:27)
[2021-09-22] MEDS ORDERED: RX INFO: IV CONTRAST WAS GIVEN 1 EACH MISC MISCELLANE PRN (13:27)
[2021-09-22] MEDS ORDERED: ZOLPIDEM 5 MG TAB PO PRN (13:27)
[2021-09-22 13:59] VITALS: BMI 24.0
[2021-09-22 15:49] LABS: Chol/HDL Ratio 3.95 Ratio; LDL Cholesterol,Calculated 133.6 mg/dL (0.0-131.0)
[2021-09-22 16:26] LABS: Glucose,Whole Blood 251 mg/dL (70-110)
[2021-09-22] MEDS: ZINC SULFATE 220 MG CAP PO SCH (16:52)
[2021-09-22] MEDS: ASCORBIC ACID 500 MG TAB PO SCH (16:52)
[2021-09-22] MEDS: CYANOCOBALAMIN 500 MCG TAB PO SCH (16:52)
[2021-09-22] MEDS: CALCIUM CARB-VIT D 500 MG-5 MCG TAB PO SCH ×2 (16:52→22:06)
[2021-09-22] MEDS: CHOLECALCIFEROL 25 MCG (1000 IU) TABLET PO SCH (16:52)
--- NOTE | 2021-09-22 17:14 | CC ---
CARDIAC CATHETERIZATION REPORT INDICATION: Acute non ST segment [place]. This is an 85-year-old lady with history of coronary artery disease status post CABG with free HERRERA to LAD and a venous graft to diag. On a prior cardiac catheterization the venous graft was dictated as coming from the HERRERA. She also had a stent in the circumflex coronary artery a year after her bypass surgery. She presented with chest pain and ruled in for myocardial infarction. Also had ascending aortic aneurysm. I advised her to undergo cardiac catheterization for further evaluation. She has been explained risks, benefits and alternatives. She understood and accepted. PROCEDURE NOTE: After obtaining informed consent, left heart catheterization, coronary angiogram and selective injection of the bypass grafts is performed via the right femoral artery. Right femoral arterial access was obtained using modified Seldinger technique. Catheters and wires were exchanged in the ascending aorta. I used a size 5 Lor catheter to engage the left coronary systems. Right Lor was used to engage the right coronary artery and the free HERRERA. I also obtained a left subclavian angiogram and did document a EHRRERA that has been harvested for the surgery. FINDINGS: 1. RIGHT CORONARY ARTERY: Right coronary artery is a large dominant vessel that shows a focal 90% stenosis involving the PDA. 2. LEFT MAIN: Left main coronary artery is a normal-sized vessel, divides into circumflex coronary artery and LAD. 3. LEFT ANTERIOR DESCENDING CORONARY ARTERY: LAD appears totally occluded in its proximal portion. 4. CIRCUMFLEX CORONARY ARTERY: Circumflex coronary artery gives off an AV groove circ that has an ostial 80-90 percent stenosis. 5. The free HERRERA to LAD is patent. The LAD itself is well perfused, but the venous graft to the diagonal seems to be occluded. CONCLUSIONS: [place] 3 vessel coronary artery disease as described above with a new lesion within the PDA and the circumflex coronary artery with patent free HERRERA to LAD. PLAN: I am going to review angiographic data with Dr. Weiss, the on-call corporate relations director, and decide on further course of action. MMODL / IJN: [id number] /
--- NOTE | 2021-09-22 18:54 | P.PN ---
Subjective Progress Note Date: 09/22/21 This is a pleasant 85-year-old lady, patient of Dr. Min Will. She has underlying history of hyperlipidemia, CAD with prior CABG, 2002 with stent thousand 14, history of hypertension comes in from home via ambulance, as she didn't complain of chest pressure, across the chest wall, that radiated both ar ms, there is some shortness of breath, with no diaphoresis, no palpitations no lightheadedness no nausea no vomiting. Patient does not have any dysphagia, occasionally has some bloating, patient was given nitroglycerin, which has relieved the problem. Incidentally, in the imaging emergency room CT ruled out PE, however she has a 4.9 cm ascending aortic aneurysm without evidence of dissection as well as stenosis of right renal artery, proximal femoral artery. BNP of 622, chest x- ray shows no pneumonia, has cardiomegaly, mild pulmonary vascular congestion, troponin elevated 2.16, d-dimer elevated, 1.44 patient admitted, for suspected end STEMI patient is currently chest pain-free, on IV heparin, cardiology on consult. Aspirin, metoprolol and morphine when necessary 09/22/2021 Patient is evaluated today pending cardiac catheterization. Continues on IV heparin, currently denying chest pain or shortness of breath. Labs today showing white count 18.6, sodium 134, potassium 4.5, BUN 22 creatinine 0.84. She is receiving gentle hydration and also premedication with steroids for catheter ization due to iodine allergy. A1C 7.5 and blood sugars have been running in the 200s. Patient started on low dose levemir continues on sliding scale and will hold glipizide as she has been NPO after midnight. Cholesterol panel has been completed showing triglycerides of 120, total cholesterol 211, LDL 133.6, HDL 53.40. TSH 0.272, Free T4 within normal limits. Will continue on current levothyroxine dosing. Blood pressure today 135/72, heart rate 75, afebrile, 93% room air. Review of Systems Constitutional: Denied any fatigue denied any fever. Cardio vascular: denied any chest pain, palpitations Gastrointestinal: denied any nausea, vomiting, diarrhea Pulmonary: Denied any shortness of breath cough Neurologic denied any new focal deficits All inpatient medications were reviewed and appropriate changes in these medications as dictated in the interval history and assessment and plan. PHYSICAL EXAMINATION: GENERAL: The patient is alert and oriented x3, not in any acute distress. Well developed, well nourished. HEENT: Pupils are round and equally reacting to light. EOMI. No scleral icterus. No conjunctival pallor. Normocephalic, atraumatic. No pharyngeal erythema. No thyromegaly. CARDIOVASCULAR: S1 and S2 present. No murmurs, rubs, or gallops. PULMONARY: Chest is clear to auscultation, no wheezing or crackles. ABDOMEN: Soft, nontender, nondistended, normoactive bowel sounds. No palpable organomegaly. MUSCULOSKELETAL: No joint swelling or deformity. EXTREMITIES: No cyanosis, clubbing, or pedal edema. NEUROLOGICAL: Gross neurological examination did not reveal any focal deficits. SKIN: No rashes. Assessment and Plan 1. N-STEMI, with elevated troponin, typical symptoms of angina, relieved with nitroglycerin, patient has risk factors to include prior CAD, with prior CABG in the past. Patient will be seen consultation by cardiology, echocardiogram, aspirin and metoprolol statins and he did, however documented list for ALLERGIES, to statins, patient will need most likely PSK9 treatments, this can be managed as an outpatient. Patient is pending cardiac catherization today and continues on IV heparin 2. CAD with prior CABG, with 2002 CABG, stent 2013 patient is not on a statin, prior to admission secondary to multiple ALLERGIES. Patient will need PSK 9 inhibition, like Repatha or praluent continue metoprolol and Zetia. Reviewed lipid panel, continue on zetia and patient will be educated on diet modifications. 3. Diabetes mellitus type 2, on Glucotrol 5 mg daily, A1C found to be 7.5, patient will be started on levemir basal coverage continue with scale and hold glipizide. She has been NPO once tolerating diet can add scheduled novolog cover age and resume glipizide. 4. Hypothyroidism on levothyroxine 112 g daily, TSH low, T4 normal continue current levothyroxine dosing 4. ascending aortic aneurysm 5 75% Stenosis of the right renal artery, outpatient recommendation for vascular evaluation, for renal artery stenosis most likely chronic, might need an ultrasound, kidneys to evaluate renal size and atrophy creatinine currently is n ormal 6. 35% stenosis, proximal femoral arteries as above GI prophylaxis DVT prophylaxis Do Not Resuscitate The impression and plan of care has been dictated by Danii Thomas Nurse Practitioner as directed. Dr. Bryson MD I have performed a history and physical examination and medical decision making of this patient, discussed the same with the dictator, and agree with the dictators assessment and plan as written, documented as a scribe. Based on total visit time, I have performed more than 50% of this visit. Objective - Vital Signs Vital signs: Vital Signs Temp 97.5 F L 09/22/21 11:06 Pulse 75 09/22/21 11:06 Resp 16 09/22/21 11:06 BP 135/72 09/22/21 11:06 Pulse Ox 93 L 09/22/21 08:45 FiO2 Intake & Output 09/21/21 09/22/21 09/22/21 18:59 06:59 18:59 Intake Total 303.072 Output Total 300 Balance 3.072 Weight 67.4 kg Intake: Intake, IV Titration 63.072 Amount Heparin Sod,Pork in 0.45% 63.072 NaCl 25,000 unit In 0.45 % NaCl 1 250ml.bag @ 12 UNITS/KG/HR 8.64 mls/hr IV .Q24H JAYANT Rx#: [id number] Oral 240 Output: Urine 300 Other: Voiding Method Toilet Toilet Toilet # Voids 2 - Labs CBC & Chem 7: 09/22/21 06:50 09/22/21 07:11 Labs: Abnormal Lab Results - Last 24 Hours (Table) 09/21/21 09/21/21 09/21/21 Range/Units 11:28 16:16 17:40 WBC (3.8-10.6) k/uL Neutrophils # (1.3-7.7) k/uL Monocytes # (0-1.0) k/uL APTT 44.7 H (22.0-30.0) sec Sodium (137-145) mmol/L BUN (7-17) mg/dL Glucose (74-99) mg/dL POC Glucose (mg/dL) 332 H 303 H (70-110) mg/dL Hemoglobin A1c (0.0-6.0) % TSH (0.465-4.680) mIU/L 09/21/21 09/22/21 09/22/21 Range/Units 19:59 05:58 06:50 WBC (3.8-10.6) k/uL Neutrophils # (1.3-7.7) k/uL Monocytes # (0-1.0) k/uL APTT (22.0-30.0) sec Sodium (137-145) mmol/L BUN (7-17) mg/dL Glucose (74-99) mg/dL POC Glucose (mg/dL) 235 H 159 H (70-110) mg/dL Hemoglobin A1c 7.5 H (0.0-6.0) % TSH (0.465-4.680) mIU/L 09/22/21 09/22/21 09/22/21 Range/Units 06:50 06:50 07:11 WBC 18.6 H (3.8-10.6) k/uL Neutrophils # 15.1 H (1.3-7.7) k/uL Monocytes # 1.1 H (0-1.0) k/uL APTT 36.1 H (22.0-30.0) sec Sodium 134 L (137-145) mmol/L BUN 22 H (7-17) mg/dL Glucose 164 H (74-99) mg/dL POC Glucose (mg/dL) (70-110) mg/dL Hemoglobin A1c (0.0-6.0) % TSH 0.272 L (0.465-4.680) mIU/L Microbiology - Last 24 Hours (Table) 09/20/21 22:08 Urine Culture - Preliminary Urine,Voided Assessment and Plan Time with Patient: Less than 30
[2021-09-22 19:54] LABS: Glucose,Whole Blood 287 mg/dL (70-110)
--- NOTE | 2021-09-22 20:47 | P.PCN ---
Date of Procedure: 09/22/21 Operative Findings: PERCUTANEOUS CORONARY INTERVENTION Performing physician Glenn Weiss M.D. Procedure Performed: 1. Successful stenting of the distal left circumflex using 3.0 x 8 and 2.5 x 8 Xience drug-eluting stent with an excellent angiographic results. 2. Successful stending of the OM using 2.0 x 12 Xience drug-eluting stent with an excellent angiographic result. Indication: This is an 85-year-old female patient with hypertension and dyslipidemia who presented to the hospital with the chest discomfort and ruled in for acute coronary syndrome. She underwent heart catheterization and that revealed severe disease involving the left circumflex as well as RCA. The LAD was chronically occluded. Approach: Right common femoral artery Complications: None Level of Sedation: Moderate with a sedation length of 50 minutes Procedure Discussion: Please refer to diagnostic heart catheterization was performed by Dr. Simms earlier. Anticoagulation was initiated using heparin with continuous ACT monitoring throughout the case I did engage the left main using an EBU 4 guiding catheter. Subsequently I did a wire the left circumflex using a whisper wire. I did wire OM1 of the left circumflex using a running 3 oh wire. After that I did balloon angioplasty of the left circumflex coronary artery using 2.5 x 12 mm balloon. Subsequently I deployed a 3.0 x 8 mm stent where the stent was positioned under fluoroscopic guidance and deployed under its nominal pressure. The following angiogram showed sluggish flow in the OM1 and distal stent edge dissection in the left circumflex. I decided to cover that with a stent. I deployed 2.25 x 8 mm and other stent in the left circumflex where the stent again was positioned under fluoroscopy guidance and deployed under fluoroscopy guidance. The flow in the left circumflex itself was LENIN III flow. The flow in OM1 was a sluggish flow. At that point I decided to do kissing balloon of the left circumflex OM. That was performed using 2.5 mm balloon and 3.0 mm balloon. The following angiogram showed inadequate angiographic results in OM1 which I decided to stent at that point. I initially attempting advancing 2.5 x 12 mm stent but the stent would not cross from the proximal circumflex to OM. I decided at that point to go using 2.0 x 12 mm Jet stent where the stent again was positioned under fluoroscopy guidance and deployed under fluoroscopy guidance. The final angiogram showed adequate angiographic results with residual stenosis about 20-30% involving the left circumflex as well as OM. The procedure was completed without any complication Postprocedure Management: 1. Dual antiplatelet therap aspirin and Plavix for 12 month 2. Aggressive cholesterol 3. Consider PCI of the patient continues to be symptomatic
[2021-09-22] MEDS: INSULIN DETEMIR (LEVEMIR) 100 UNIT/ML SYR SQ SCH (22:06)
[2021-09-23 06:04] LABS: Glucose,Whole Blood 148 mg/dL (70-110)
[2021-09-23] MEDS: INSULIN ASPART (NovoLOG) 100 UNIT/ML VIAL SQ SCH ×4 (06:25→20:56)
[2021-09-23] MEDS: LEVOTHYROXINE 112 MCG TAB PO SCH (06:25)
[2021-09-23 07:56] LABS: Calcium 9.3 mg/dL (8.4-10.2); Potassium 4.8 mmol/L (3.5-5.1)
[2021-09-23] MEDS ORDERED: lisinopriL 5 MG TAB PO SCH (09:00)
--- NOTE | 2021-09-23 09:38 | CA ---
Transthoracic Echo Report Name: Lisha Hearn Age: 85 Gender: F : 1935 Exam Date: 09/22/2021 08:08 Exam Location: [facility] Ht (in): 65 Wt (lb): 146 Ordering Physician: Madiha Rich Attending/Referring Phys: Presser Machine Mikayla Lara RDCS Procedure CPT: Indications: chest pain, elevated troponin Cardiac Hx: Technical Quality: Fair Contrast 1: Total Dose (mL): Contrast 2: Total Dose (mL): MEASUREMENTS (Male / Female) Normal Values M-MODE Aortic Root Diameter MM 2.9 cm LA Systolic Diameter MM 4.0 cm LA Ao Ratio MM 1.4 MV E Point Septal Separation 0.2 cm DOPPLER MV Area PHT 3.9 cm??? Mitral E Point Velocity 50.8 cm/s Mitral A Point Velocity 92.8 cm/s Mitral E to A Ratio 0.5 MV Deceleration Time 196.2 ms MV E' Velocity 5.3 cm/s Mitral E to MV E' Ratio 9.7 TR Peak Velocity 372.2 cm/s TR Peak Gradient 55.4 mmHg Right Ventricular Systolic Press 60.1 mmHg FINDINGS Left Ventricle Mildly increased left ventricular wall thickness. Left ventricular ejection fraction is estimated at 35-40 %. Apical septal and apical lateral hypokinesis. Consider apical ballooning syndrome Right Ventricle Mild right ventricular dilatation. Moderate to pulmonary hypertension. Right Atrium Moderate right atrial dilatation. Left Atrium Moderate left atrial dilatation. Mitral Valve Structurally normal mitral valve. Mild mitral annular calcification. Moderate mitral regurgitation. Aortic Valve No aortic valve stenosis or regurgitation. Tricuspid Valve [id number] tricuspid regurgitation. Pulmonic Valve Trace pulmonic regurgitation. Pericardium No pericardial effusion. Aorta Normal size aortic root and proximal ascending aorta. CONCLUSIONS There is evidence of hypokinesia involving the mid to distal septum apex and anterolateral wall possibility of apical ballooning syndrome should be considered. There is mild right ventricular enlargement with moderate to severe pulmonary hypertension. There is moderate mitral and tricuspid regurgitation. No pericardial effusion Previewed by: Dr. Albert Velasquez MD (Electronically Signed) Final Date: 23 September 2021 09:37
[2021-09-23] MEDS: MAGNESIUM OXIDE 400 MG TAB PO SCH (10:17)
[2021-09-23] MEDS: CHOLECALCIFEROL 25 MCG (1000 IU) TABLET PO SCH (10:17)
[2021-09-23] MEDS: ASCORBIC ACID 500 MG TAB PO SCH (10:18)
[2021-09-23] MEDS: CALCIUM CARB-VIT D 500 MG-5 MCG TAB PO SCH ×2 (10:18→20:58)
[2021-09-23] MEDS: ASPIRIN 81 MG PO SCH (10:18)
[2021-09-23] MEDS: CLOPIDOGREL 75 MG TAB PO SCH (10:18)
[2021-09-23] MEDS: ZINC SULFATE 220 MG CAP PO SCH (10:18)
[2021-09-23] MEDS: METOPROLOL TARTRATE 50 MG TAB PO SCH ×2 (10:18→20:58)
[2021-09-23] MEDS: CYANOCOBALAMIN 500 MCG TAB PO SCH (10:19)
[2021-09-23] MEDS: EZETIMIBE 10 MG TAB PO SCH (10:19)
[2021-09-23] MEDS: FUROSEMIDE 20 MG TAB PO SCH ×2 (10:21→16:48)
[2021-09-23] MEDS: HEPARIN SOD,PORK IN 0.45% NACL 25,000 UNIT in 0.45% NACL 1 250ML.BAG IV SCH (10:32)
[2021-09-23 11:46] LABS: Glucose,Whole Blood 286 mg/dL (70-110)
--- NOTE | 2021-09-23 11:56 | P.PN ---
Subjective This is an 85-year-old female past medical history of coronary artery disease status post CABG in [place] many years ago, hypertension, dyslipidemia, hypothyroidism. She lives 6 months out of the year in [place] and [facility]. 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 Patient presented with chest pain concern for NSTEMI. 09/22/2021 She underwent cardiac catheterization with Dr. Simms which revealed focal 90% stenosis involving the PDA, LAD appears totally occluded in the proximal portion, ostial 8090 percent circumflex stenosis, free HERRERA to LAD is patent. Patient underwent successful PCI of the distal left circumflex and OM with Dr. Weiss. Echocardiogram revealed EF of 3540 % apical septal and apical lateral hypokinesis, consider apical ballooning syndrome, mild right ventricular enlargement with moderate to severe pulmonary hypertension. Moderate mitral and tricuspid regurgitation. 09/23/2021 Patient seen and examined at bedside, she endorses symptoms of shortness of breath and orthopnea. Requiring oxygen overnight. No edema No further chest pain. Blood pressure 163/91, heart rate 91, afebrile, oxygen saturations 95% room air GENERAL: Well-appearing, well-nourished and in no acute distress. NECK: Supple without JVD LUNGS: Breath sounds crackles noted in the bases to auscultation bilaterally. Respiration equal and unlabored. No wheezes, rales or rhonchi. HEART: Regular rate and rhythm without murmurs, rubs or gallops. S1 and S2 heard. EXTREMITIES: Normal range of motion, no edema. No clubbing or cyanosis. Peripheral pulses intact. SKIN: Right groin cath site, clean, dry no hematoma noted ASSESSMENT NSTEMI s/p PCI to OM and distal left circumflex on 09/22/2021 Ischemic cardiomyopathy Coronary artery disease status post CABG in [place] many years ago Hypertension Dyslipidemia Hypothyroidism PLAN Start Lasix 20mg BID Start lisinopril 5mg daily Continue dual antiplatelet therapy with aspirin and Plavix Continue Zetia and beta sujatha Monitor renal functions Plan for PCI tomorrow the Dr. Weiss. NPO after midnight I have discussed the risks, benefits and alternative therapies for the above- mentioned procedure and for both sedation/analgesia as well as necessary blood product administration, if indicated, as they pertain to this patient. The patient has indicated understanding and acceptance of the risks and procedures discussed. Questions have been answered appropriately and she is agreeable to move forward with the above-stated procedure. Further recommendations based on clinical course Nurse Practitioner note has been reviewed, I agree with a documented findings and plan of care. Patient was seen and examined. Objective - Vital Signs Vital signs: Vital Signs Temp 97.9 F 09/23/21 04:00 Pulse 91 09/23/21 04:00 Resp 18 09/23/21 04:00 BP 163/91 09/23/21 04:00 Pulse Ox 95 09/23/21 04:00 FiO2 Intake & Output 09/22/21 09/23/21 09/23/21 18:59 06:59 18:59 Intake Total 650 400 Output Total 650 Balance 650 -650 400 Weight 67.4 kg Intake: IV 650 Oral 400 Output: Urine 650 Other: Voiding Method External Catheter External Catheter # Voids 1 - Labs CBC & Chem 7: 09/22/21 06:50 09/23/21 07:12 Labs: Abnormal Lab Results - Last 24 Hours (Table) 09/22/21 09/22/21 09/22/21 Range/Units 06:50 07:11 16:24 Sodium (137-145) mmol/L BUN (7-17) mg/dL Glucose (74-99) mg/dL POC Glucose (mg/dL) 251 H (70-110) mg/dL Hemoglobin A1c 7.5 H (0.0-6.0) % Cholesterol 211.00 H (0.00-200.00) mg/dL LDL Cholesterol, Calc 133.6 H (0.0-131.0) mg/dL 09/22/21 09/23/21 09/23/21 Range/Units 19:53 06:02 07:12 Sodium 135 L (137-145) mmol/L BUN 25 H (7-17) mg/dL Glucose 164 H (74-99) mg/dL POC Glucose (mg/dL) 287 H 148 H (70-110) mg/dL Hemoglobin A1c (0.0-6.0) % Cholesterol (0.00-200.00) mg/dL LDL Cholesterol, Calc (0.0-131.0) mg/dL Microbiology - Last 24 Hours (Table) 09/20/21 22:08 Urine Culture - Final Urine,Voided
[2021-09-23 12:17] LABS: Basophils % (A) 0 %; Eosinophils % (A) 0 %; HCT 43.3 % (34.0-46.0); HGB 13.2 gm/dL (11.4-16.0); Hypochromasia Slight; Lymphocytes # (A) 1.4 k/uL (1.0-4.8); Lymphocytes % (A) 8 %; MCH 28.6 pg (25.0-35.0); MCHC 30.6 g/dL (31.0-37.0); MCV 93.4 fL (80.0-100.0); Mean Platelet Volume 9.4; Monocytes # (A) 0.7 k/uL (0-1.0); Monocytes % (A) 4 %; Neutrophils # (A) 14.3 k/uL (1.3-7.7); Neutrophils % (A) 86 %; Platelet Count 217 k/uL (150-450); RBC 4.64 m/uL (3.80-5.40); RDW 13.8 % (11.5-15.5); WBC 16.6 k/uL (3.8-10.6)
[2021-09-23] MEDS: lisinopriL 5 MG TAB PO SCH (13:07)
[2021-09-23 16:36] LABS: Glucose,Whole Blood 85 mg/dL (70-110)
--- NOTE | 2021-09-23 18:36 | P.PN ---
Subjective Progress Note Date: 09/23/21 This is a pleasant 85-year-old lady, patient of Dr. Min Will. She has underlying history of hyperlipidemia, CAD with prior CABG, 2002 with stent thousand 14, history of hypertension comes in from home via ambulance, as she didn't complain of chest pressure, across the chest wall, that radiated both ar ms, there is some shortness of breath, with no diaphoresis, no palpitations no lightheadedness no nausea no vomiting. Patient does not have any dysphagia, occasionally has some bloating, patient was given nitroglycerin, which has relieved the problem. Incidentally, in the imaging emergency room CT ruled out PE, however she has a 4.9 cm ascending aortic aneurysm without evidence of dissection as well as stenosis of right renal artery, proximal femoral artery. BNP of 622, chest x- ray shows no pneumonia, has cardiomegaly, mild pulmonary vascular congestion, troponin elevated 2.16, d-dimer elevated, 1.44 patient admitted, for suspected end STEMI patient is currently chest pain-free, on IV heparin, cardiology on consult. Aspirin, metoprolol and morphine when necessary 09/22/2021 Patient is evaluated today pending cardiac catheterization. Continues on IV heparin, currently denying chest pain or shortness of breath. Labs today showing white count 18.6, sodium 134, potassium 4.5, BUN 22 creatinine 0.84. She is receiving gentle hydration and also premedication with steroids for catheter ization due to iodine allergy. A1C 7.5 and blood sugars have been running in the 200s. Patient started on low dose levemir continues on sliding scale and will hold glipizide as she has been NPO after midnight. Cholesterol panel has been completed showing triglycerides of 120, total cholesterol 211, LDL 133.6, HDL 53.40. TSH 0.272, Free T4 within normal limits. Will continue on current levothyroxine dosing. Blood pressure today 135/72, heart rate 75, afebrile, 93% room air. 09/23/2021 Patient is sitting up in chair today with family at the bedside. She is post cardiac cath with right femoral approach. She underwent stenting to distal left circumflex and OM with Dr Weiss. Echocardiogram shows an EF of 35 to 40% with apical septal and apical lateral hypokinesis with mild right ventricular enl argement and moderate to severe pulmonary hypertension, moderate mitral regurgitation and tricuspid regurgitation. Patient is scheduled to undergo further intervention tomorrow. Medications have been adjusted by cardiology. Labs reviewed today showing white count 16.6, sodium 135, potassium 4.8, BUN 25, creatinine 0.79. Blood glucose has improved. Review of Systems Constitutional: Denied any fatigue denied any fever. Cardio vascular: denied any chest pain, palpitations Gastrointestinal: denied any nausea, vomiting, diarrhea Pulmonary: Denied any shortness of breath cough Neurologic denied any new focal deficits All inpatient medications were reviewed and appropriate changes in these medi cations as dictated in the interval history and assessment and plan. PHYSICAL EXAMINATION: GENERAL: The patient is alert and oriented x3, not in any acute distress. Well developed, well nourished. HEENT: Pupils are round and equally reacting to light. EOMI. No scleral icterus. No conjunctival pallor. Normocephalic, atraumatic. No pharyngeal erythema. No thyromegaly. CARDIOVASCULAR: S1 and S2 present. No murmurs, rubs, or gallops. PULMONARY: Chest is clear to auscultation, no wheezing or crackles. ABDOMEN: Soft, nontender, nondistended, normoactive bowel sounds. No palpable organomegaly. MUSCULOSKELETAL: No joint swelling or deformity. EXTREMITIES: No cyanosis, clubbing, or pedal edema. NEUROLOGICAL: Gross neurological examination did not reveal any focal deficits. SKIN: No rashes. Assessment and Plan -N-STEMI, with elevated troponin post PCI with stenting to the distal left c ircumflex and OM -CAD with prior CABG, with 2002 CABG, stent 2013 -Ischemic cardiomyopathy EF 35 to 40% -Hypertension -Leukocytosis possible reactive -Dyslipidemia with allergy to statin -Moderate pulmonary hypertension -Diabetes mellitus type 2 with hyperglycemia, A1C 7.5 -Hypothyroidism -Ascending aortic aneurysm -75% Stenosis of the right renal artery, outpatient recommendation for vascular evaluation, for renal artery stenosis most likely chronic -35% stenosis, proximal femoral arteries as above GI prophylaxis DVT prophylaxis Do Not Resuscitate Plan Patient will undergo PCI tomorrow Continue dual antiplatelet therapy Patient started on lisinopril, lasix today Continue beta sujatha Continue zetia Further recommendations from cardiology based on clinical course Preoperative hydration with normal saline Repeat CBC, BMP tomorrow Continue all other supportive care The impression and plan of care has been dictated by Danii Thomas, Nurse Pr actitioner as directed. Dr. Bryson MD I have performed a history and physical examination and medical decision making of this patient, discussed the same with the dictator, and agree with the dicta tors assessment and plan as written, documented as a scribe. Based on total visit time, I have performed more than 50% of this visit. Objective - Vital Signs Vital signs: Vital Signs Temp 97.8 F 09/23/21 12:00 Pulse 78 09/23/21 12:00 Resp 18 09/23/21 12:00 BP 124/72 09/23/21 12:00 Pulse Ox 94 L 09/23/21 12:00 FiO2 Intake & Output 09/22/21 09/23/21 09/23/21 18:59 06:59 18:59 Intake Total 650 560 Output Total 650 300 Balance 650 -650 260 Weight 67.4 kg Intake: IV 650 Oral 560 Output: Urine 650 300 Other: Voiding Method External Catheter External Catheter External Catheter # Voids 1 - Labs CBC & Chem 7: 09/23/21 07:12 09/23/21 07:12 Labs: Abnormal Lab Results - Last 24 Hours (Table) 09/22/21 09/22/21 09/22/21 Range/Units 07:11 16:24 19:53 WBC (3.8-10.6) k/uL MCHC (31.0-37.0) g/dL Neutrophils # (1.3-7.7) k/uL Sodium (137-145) mmol/L BUN (7-17) mg/dL Glucose (74-99) mg/dL POC Glucose (mg/dL) 251 H 287 H (70-110) mg/dL Cholesterol 211.00 H (0.00-200.00) mg/dL LDL Cholesterol, Calc 133.6 H (0.0-131.0) mg/dL 09/23/21 09/23/21 09/23/21 Range/Units 06:02 07:12 07:12 WBC 16.6 H (3.8-10.6) k/uL MCHC 30.6 L (31.0-37.0) g/dL Neutrophils # 14.3 H (1.3-7.7) k/uL Sodium 135 L (137-145) mmol/L BUN 25 H (7-17) mg/dL Glucose 164 H (74-99) mg/dL POC Glucose (mg/dL) 148 H (70-110) mg/dL Cholesterol (0.00-200.00) mg/dL LDL Cholesterol, Calc (0.0-131.0) mg/dL 09/23/21 Range/Units 11:31 WBC (3.8-10.6) k/uL MCHC (31.0-37.0) g/dL Neutrophils # (1.3-7.7) k/uL Sodium (137-145) mmol/L BUN (7-17) mg/dL Glucose (74-99) mg/dL POC Glucose (mg/dL) 286 H (70-110) mg/dL Cholesterol (0.00-200.00) mg/dL LDL Cholesterol, Calc (0.0-131.0) mg/dL Microbiology - Last 24 Hours (Table) 09/20/21 22:08 Urine Culture - Final Urine,Voided Assessment and Plan Time with Patient: Less than 30
[2021-09-23 20:17] LABS: Glucose,Whole Blood 144 mg/dL (70-110)
[2021-09-23] MEDS: INSULIN DETEMIR (LEVEMIR) 100 UNIT/ML SYR SQ SCH (20:58)
[2021-09-24] MEDS ORDERED: SODIUM CHLORIDE 0.9% 1,000 ML in EMPTY BAG 1 BAG IV ONE
[2021-09-24] MEDS ORDERED: ASPIRIN 81 MG PO ONE (05:25)
[2021-09-24] MEDS: CLOPIDOGREL 75 MG TAB PO SCH (05:46)
[2021-09-24] MEDS: ASCORBIC ACID 500 MG TAB PO SCH (05:46)
[2021-09-24] MEDS: CYANOCOBALAMIN 500 MCG TAB PO SCH (05:46)
[2021-09-24] MEDS: ASPIRIN 81 MG PO SCH (05:46)
[2021-09-24] MEDS: CALCIUM CARB-VIT D 500 MG-5 MCG TAB PO SCH ×2 (05:46→20:13)
[2021-09-24] MEDS: LEVOTHYROXINE 112 MCG TAB PO SCH (05:46)
[2021-09-24] MEDS: METOPROLOL TARTRATE 50 MG TAB PO SCH ×2 (05:47→20:13)
[2021-09-24] MEDS: EZETIMIBE 10 MG TAB PO SCH (05:47)
[2021-09-24] MEDS: ZINC SULFATE 220 MG CAP PO SCH (05:47)
[2021-09-24] MEDS: MAGNESIUM OXIDE 400 MG TAB PO SCH (05:47)
[2021-09-24] MEDS: lisinopriL 5 MG TAB PO SCH (05:47)
[2021-09-24 05:59] LABS: Glucose,Whole Blood 104 mg/dL (70-110)
[2021-09-24] MEDS: INSULIN ASPART (NovoLOG) 100 UNIT/ML VIAL SQ SCH ×4 (06:56→20:13)
[2021-09-24] MEDS ORDERED: HEPARIN SODIUM,PORCINE 2,500 UNIT in SODIUM CHLORIDE 0.9% 250 ML IRRIGATION PRN (07:00)
[2021-09-24] MEDS ORDERED: HEPARIN SODIUM,PORCINE 10,000 UNIT in SODIUM CHLORIDE 0.9% 1,000 ML IRRIGATION PRN (07:00)
[2021-09-24 08:25] LABS: Calcium 9.1 mg/dL (8.4-10.2); Magnesium 1.7 mg/dL (1.6-2.3); Potassium 4.2 mmol/L (3.5-5.1)
[2021-09-24] MEDS: FUROSEMIDE 20 MG TAB PO SCH ×2 (08:31→16:58)
[2021-09-24] MEDS: CHOLECALCIFEROL 25 MCG (1000 IU) TABLET PO SCH (08:31)
[2021-09-24 08:36] LABS: Basophils % (A) 0 %; Eosinophils # (A) 0.1 k/uL (0-0.7); Eosinophils % (A) 1 %; HCT 40.2 % (34.0-46.0); HGB 13.2 gm/dL (11.4-16.0); Lymphocytes # (A) 2.8 k/uL (1.0-4.8); Lymphocytes % (A) 19 %; MCHC 32.9 g/dL (31.0-37.0); Mean Platelet Volume 8.5; Monocytes # (A) 1.1 k/uL (0-1.0); Monocytes % (A) 7 %; Neutrophils # (A) 10.5 k/uL (1.3-7.7); Neutrophils % (A) 71 %; Platelet Count 208 k/uL (150-450); RBC 4.42 m/uL (3.80-5.40); RDW 14.2 % (11.5-15.5); WBC 14.8 k/uL (3.8-10.6)
[2021-09-24 11:43] LABS: Glucose,Whole Blood 117 mg/dL (70-110)
--- NOTE | 2021-09-24 11:49 | CDI ---
Documentation Clarification Form Date: 09/24/2021 11:33:31 AM From: Priscila Huerta RN CCDS Admit Date: 09/21/2021 04:03:00 AM Patient Name: Lisha Hearn Visit Number: [id number] Discharge Date: ATTENTION: The Clinical Documentation Specialists (CDI) and [facility] Coding Staff appreciate your assistance in clarifying documentation. Please respond to the clarification below the line at the bottom and electronically sign. The CDI & [facility] Coding staff will review the response and follow-up if needed. Please note: Queries are made part of the Legal Health Record. If you have any questions, please contact the author of this message via ITS. Dr. Jermaine Simms MD Your patient has the documented diagnosis of Ischemic cardiomyopathy EF 35-40%. Additional information is requested. History/Risk Factors: 85-year-old female presents to the ED via EMS with chest pressure, across the chest wall that radiated to both arms with shortness of breath. Medical History: DM, HTN, CAD and CABG. 09/21, H&P. Clinical Indicators: VS/Pulse OX: 09/20 H/P 176/107; HR 84; Temperature 97.8F Oral; RR 16; SpO2 93% room air BNP: 09/20 622 Echocardiogram Results: EF 35-40% hypokinesia involving the mid to distal septum apex and anterolateral wall possibility of apical ballooning syndrome should be considered. Mild right ventricular enlargement with moderate to severe pulmonary hypertension. Moderate mitral and tricuspid regurgitation. Chest X Ray: 09/20 Cardiomegaly and mild pulmonary vascular congestion. Treatment: 09/23 Lasix 20mg PO BID JAYANT; 09/20 Lopressor 25mg PO x 1; 09/21 Lopressor 25mg PO x 1; 09/21 Lopressor 25mg PO BID changed 09/21 to Lopressor 50mg PO BID JAYANT. In your professional opinion, can you please clarify the ischemic cardiomyopathy if known? [ ] Chronic Systolic Heart Failure (reduced EF) [ ] Chronic Systolic & Diastolic Heart Failure [ ] Other, please specify [ ] Unable to determine Pt is not in CHF (Template Last Revised: April 2020) MTDD
[2021-09-24] MEDS ORDERED: MAGNESIUM SULFATE-D5W PMX 1 GM in DEXTROSE/WATER 1 100ML.BAG IVPB ONE (12:00)
[2021-09-24] MEDS ORDERED: diphenhydrAMINE 50 MG/ML 1 ML VIAL ONE (14:31)
[2021-09-24] MEDS ORDERED: HEPARIN SODIUM 1,000 UN/ML (10ML VL) ONE (14:31)
[2021-09-24] MEDS ORDERED: methylPREDNISolone SOD SUCCI 125 MG/2 ML VIAL ONE (14:31)
[2021-09-24] MEDS ORDERED: methylPREDNISolone SOD SUCCI 125 MG/2 ML VIAL IV ONE (14:34)
[2021-09-24] MEDS ORDERED: diphenhydrAMINE 50 MG/ML 1 ML VIAL IVP ONE (14:34)
[2021-09-24] MEDS: MIDAZOLAM 2 MG/2 ML VIAL IV ONE ×2 (14:36→14:47)
[2021-09-24] MEDS ORDERED: LIDOCAINE 1% INJ 10MG/ML (5 ML VIAL-PF) SQ ONE ×2 (14:41)
[2021-09-24] MEDS ORDERED: LIDOCAINE 1% INJ 10MG/ML (30 ML VIAL-PF) SQ ONE (14:41)
[2021-09-24] MEDS ORDERED: fentaNYL (PF) 50 MCG/ML 2 ML AMP ONE (14:42)
[2021-09-24] MEDS ORDERED: fentaNYL (PF) 50 MCG/ML 2 ML AMP IV ONE (14:43)
[2021-09-24] MEDS ORDERED: IV FLUID CONTINUATION 1,000 ML IV ONE (14:44)
--- NOTE | 2021-09-24 14:46 | P.PN ---
Subjective Progress Note Date: 09/24/21 This is a pleasant 85-year-old lady, patient of Dr. Min Will. She has underlying history of hyperlipidemia, CAD with prior CABG, 2002 with stent thousand 14, history of hypertension comes in from home via ambulance, as she didn't complain of chest pressure, across the chest wall, that radiated both ar ms, there is some shortness of breath, with no diaphoresis, no palpitations no lightheadedness no nausea no vomiting. Patient does not have any dysphagia, occasionally has some bloating, patient was given nitroglycerin, which has relieved the problem. Incidentally, in the imaging emergency room CT ruled out PE, however she has a 4.9 cm ascending aortic aneurysm without evidence of dissection as well as stenosis of right renal artery, proximal femoral artery. BNP of 622, chest x- ray shows no pneumonia, has cardiomegaly, mild pulmonary vascular congestion, troponin elevated 2.16, d-dimer elevated, 1.44 patient admitted, for suspected end STEMI patient is currently chest pain-free, on IV heparin, cardiology on consult. Aspirin, metoprolol and morphine when necessary 09/22/2021 Patient is evaluated today pending cardiac catheterization. Continues on IV heparin, currently denying chest pain or shortness of breath. Labs today showing white count 18.6, sodium 134, potassium 4.5, BUN 22 creatinine 0.84. She is receiving gentle hydration and also premedication with steroids for catheter ization due to iodine allergy. A1C 7.5 and blood sugars have been running in the 200s. Patient started on low dose levemir continues on sliding scale and will hold glipizide as she has been NPO after midnight. Cholesterol panel has been completed showing triglycerides of 120, total cholesterol 211, LDL 133.6, HDL 53.40. TSH 0.272, Free T4 within normal limits. Will continue on current levothyroxine dosing. Blood pressure today 135/72, heart rate 75, afebrile, 93% room air. 09/23/2021 Patient is sitting up in chair today with family at the bedside. She is post cardiac cath with right femoral approach. She underwent stenting to distal left circumflex and OM with Dr Weiss. Echocardiogram shows an EF of 35 to 40% with apical septal and apical lateral hypokinesis with mild right ventricular enl argement and moderate to severe pulmonary hypertension, moderate mitral regurgitation and tricuspid regurgitation. Patient is scheduled to undergo further intervention tomorrow. Medications have been adjusted by cardiology. Labs reviewed today showing white count 16.6, sodium 135, potassium 4.8, BUN 25, creatinine 0.79. Blood glucose has improved. 09/24/2021 Patient sitting up in the chair pending cardiac catheterization today. No acute events overnight, continues off oxygen support. Labs today showing white count 14.8, sodium 134, BUN 29, creatinine 0.89. Blood glucose has improved. Magnesium 1.7 today patient will receive 1 gram of IV magnesium. Patient was hydrated overnight. Continues on aspirin, plavix, zetia, metoprolol, po lasix, lisinopril. Blood pressure today 153/80. Review of Systems Constitutional: Denied any fatigue denied any fever. Cardio vascular: denied any chest pain, palpitations Gastrointestinal: denied any nausea, vomiting, diarrhea Pulmonary: Denied any shortness of breath cough Neurologic denied any new focal deficits All inpatient medications were reviewed and appropriate changes in these medications as dictated in the interval history and assessment and plan. PHYSICAL EXAMINATION: GENERAL: The patient is alert and oriented x3, not in any acute distress. Well developed, well nourished. HEENT: Pupils are round and equally reacting to light. EOMI. No scleral icterus. No conjunctival pallor. Normocephalic, atraumatic. No pharyngeal erythema. No thyromegaly. CARDIOVASCULAR: S1 and S2 present. No murmurs, rubs, or gallops. PULMONARY: Chest is clear to auscultation, no wheezing or crackles. ABDOMEN: Soft, nontender, nondistended, normoactive bowel sounds. No palpable organomegaly. MUSCULOSKELETAL: No joint swelling or deformity. EXTREMITIES: No cyanosis, clubbing, or pedal edema. NEUROLOGICAL: Gross neurological examination did not reveal any focal deficits. SKIN: No rashes. Assessment and Plan -N-STEMI, with elevated troponin post PCI with stenting to the distal left circumflex and OM -CAD with prior CABG, with 2002 CABG, stent 2013 -Ischemic cardiomyopathy -Hypertension -Leukocytosis possible reactive -Dyslipidemia with allergy to statin -Moderate pulmonary hypertension -Diabetes mellitus type 2 with hyperglycemia, A1C 7.5 -Hypothyroidism -Ascending aortic aneurysm -75% Stenosis of the right renal artery, outpatient recommendation for vascular evaluation, for renal artery stenosis most likely chronic -35% stenosis, proximal femoral arteries as above GI prophylaxis DVT prophylaxis Do Not Resuscitate Plan Patient will undergo second PCI today Continue dual antiplatelet therapy Further recommendations from cardiology based on clinical course Repeat BMP tomorrow Continue all other supportive care The impression and plan of care has been dictated by Danii Thomas, Nurse Practitioner as directed. Dr. Bryson MD I have performed a history and physical examination and medical decision making of this patient, discussed the same with the dictator, and agree with the d ictators assessment and plan as written, documented as a scribe. Based on total visit time, I have performed more than 50% of this visit. Objective - Vital Signs Vital signs: Vital Signs Temp 97.7 F 09/24/21 06:00 Pulse 69 09/24/21 12:39 Resp 18 09/24/21 12:39 BP 153/80 09/24/21 12:39 Pulse Ox 95 09/24/21 12:39 FiO2 Intake & Output 09/23/21 09/24/21 09/24/21 18:59 06:59 18:59 Intake Total 740 Output Total 500 850 Balance 240 -850 Intake: Oral 740 Output: Urine 500 850 Other: Voiding Method External Catheter Toilet Toilet External Catheter # Voids 2 # Bowel Movements 2 - Labs CBC & Chem 7: 09/24/21 07:23 09/24/21 07:23 Labs: Abnormal Lab Results - Last 24 Hours (Table) 09/23/21 09/24/21 09/24/21 Range/Units 20:15 07:23 07:23 WBC 14.8 H (3.8-10.6) k/uL Neutrophils # 10.5 H (1.3-7.7) k/uL Monocytes # 1.1 H (0-1.0) k/uL Sodium 134 L (137-145) mmol/L BUN 29 H (7-17) mg/dL Glucose 119 H (74-99) mg/dL POC Glucose (mg/dL) 144 H (70-110) mg/dL 09/24/21 Range/Units 11:41 WBC (3.8-10.6) k/uL Neutrophils # (1.3-7.7) k/uL Monocytes # (0-1.0) k/uL Sodium (137-145) mmol/L BUN (7-17) mg/dL Glucose (74-99) mg/dL POC Glucose (mg/dL) 117 H (70-110) mg/dL Assessment and Plan Time with Patient: Less than 30
[2021-09-24] MEDS ORDERED: HEPARIN SODIUM 1,000 UN/ML (10ML VL) IV ONE (14:54)
[2021-09-24] MEDS ORDERED: niCARdipine 25 MG/10 ML VIAL ONE (15:11)
[2021-09-24] MEDS ORDERED: niCARdipine Syringe (1,000 mcg/10 mL) INTRACORON ONE (15:15)
[2021-09-24] MEDS ORDERED: NITROGLYCERIN 1000MCG/10ML SYRINGE INTRACORON ONE (15:15)
[2021-09-24] MEDS ORDERED: IOPAMIDOL-370 125ML BTL INJ ONE (15:28)
[2021-09-24] MEDS ORDERED: ATROPINE SULFATE 0.1 MG/ML 10ML SYRINGE IV PRN (15:29)
[2021-09-24] MEDS ORDERED: NITROGLYCERIN SL TABS 0.4 MG TAB SUBLINGUAL PRN (15:29)
[2021-09-24] MEDS ORDERED: MAG HYDROX/AL HYDROX/SIMETH 30 ML CUP PO PRN (15:29)
[2021-09-24] MEDS ORDERED: ZOLPIDEM 5 MG TAB PO PRN (15:29)
[2021-09-24] MEDS ORDERED: RX INFO: IV CONTRAST WAS GIVEN 1 EACH MISC MISCELLANE PRN (15:29)
[2021-09-24] MEDS ORDERED: SODIUM CHLORIDE 0.9% 1,000 ML in EMPTY BAG 1 BAG IV SCH (15:30)
--- NOTE | 2021-09-24 15:33 | P.PCN ---
Date of Procedure: 09/24/21 Operative Findings: PERCUTANEOUS CORONARY INTERVENTION Performing physician Glenn Weiss M.D. Procedure Performed: 1. Successful stenting of the PLV branch of the RCA using 2.0 x 15 mm Xience drug-eluting stent with an excellent angiographic results. 2. Selective right common femoral artery angiogram 3. Ultrasound-guided access of the left common femoral artery Indication: This is an 85-year-old female patient was admitted to the hospital recently was acute non-ST deviation myocardial infarction but she underwent PCI of the LCx and she was brought today to undergo PCI of the RCA Approach: Left common femoral artery Complications: None Level of Sedation: Moderate with a sedation length of 44 minutes Procedure Discussion: After obtaining an informed consent the patient was brought to the cardiac mill labor supervisor. The left common femoral artery was cannulated using puncture technique under ultrasound guidance, the micropuncture wire passed easily then I placed a 6-Guamanian sheath and 11 cm at the left common femoral artery. Subsequently I did engage the RCA using an 0.75 guiding catheter. I did wire the RCA using a whisper wire and a run-through wire. The RCA was extremely tortuous. Subsequently the wire was advanced the PLV branch. PTCA ballooning was performed using 20 by 12 mm balloon before I deployed 20 by 15 mm an extra drug-eluting stent where the stent was positioned under fluoroscopy guidance and deployed under its nominal pressure. The following angiogram showed an excellent angiographic results and the procedure was completed without any complication Postprocedure Management: 1. Continue dual antiplatelet therapy for 12 month 2. Risk factors modification 3. Follow-up with the patient
[2021-09-24 16:45] LABS: Glucose,Whole Blood 180 mg/dL (70-110)
[2021-09-24 20:06] LABS: Glucose,Whole Blood 295 mg/dL (70-110)
[2021-09-24] MEDS: INSULIN DETEMIR (LEVEMIR) 100 UNIT/ML SYR SQ SCH (20:13)
[2021-09-25 05:49] LABS: Glucose,Whole Blood 213 mg/dL (70-110)
[2021-09-25] MEDS: LEVOTHYROXINE 112 MCG TAB PO SCH (06:20)
[2021-09-25] MEDS: INSULIN ASPART (NovoLOG) 100 UNIT/ML VIAL SQ SCH ×2 (06:21→11:58)
[2021-09-25 07:30] LABS: Potassium 4.5 mmol/L (3.5-5.1)
[2021-09-25 08:21] VITALS: TEMP 97.8
[2021-09-25] MEDS: CLOPIDOGREL 75 MG TAB PO SCH (08:31)
[2021-09-25] MEDS: ASPIRIN 81 MG PO SCH (08:31)
[2021-09-25] MEDS: MAGNESIUM OXIDE 400 MG TAB PO SCH (08:31)
[2021-09-25] MEDS: FUROSEMIDE 20 MG TAB PO SCH (08:31)
[2021-09-25] MEDS: METOPROLOL TARTRATE 50 MG TAB PO SCH (08:31)
[2021-09-25] MEDS: ZINC SULFATE 220 MG CAP PO SCH (08:31)
[2021-09-25] MEDS: CYANOCOBALAMIN 500 MCG TAB PO SCH (08:31)
[2021-09-25] MEDS: EZETIMIBE 10 MG TAB PO SCH (08:31)
[2021-09-25] MEDS: CALCIUM CARB-VIT D 500 MG-5 MCG TAB PO SCH (08:31)
[2021-09-25] MEDS: CHOLECALCIFEROL 25 MCG (1000 IU) TABLET PO SCH (08:31)
[2021-09-25] MEDS: ASCORBIC ACID 500 MG TAB PO SCH (08:32)
[2021-09-25] MEDS: lisinopriL 5 MG TAB PO SCH (08:32)
--- NOTE | 2021-09-25 09:43 | XR ---
EXAMINATION TYPE: XR chest 1V portable DATE OF EXAM: 09/25/2021 COMPARISON: 09/20/2021 HISTORY: Chest pain TECHNIQUE: Single frontal view of the chest is obtained. FINDINGS: A chronic rib cage deformity seen with biapical pleural thickening and left-sided consolid ation with small effusion. Postoperative change. Mildly coarsened interstitium. Underlying COPD suspe cted. IMPRESSION: 1. Left lower lobe infiltrate or atelectasis with small effusion. 2. Correlate for chronic interstitial lung disease or mild congestion.
--- NOTE | 2021-09-25 10:28 | P.PN ---
Subjective This is an 85-year-old female past medical history of coronary artery disease status post CABG in [place] many years ago, hypertension, dyslipidemia, hypothyroidism. She lives 6 months out of the year in [place] and [facility]. She does not currently have a civil laboratory technician in [place]. Patient presented with chest pain concern for NSTEMI. 09/22/2021 She underwent cardiac catheterization with Dr. Simms which revealed focal 90% stenosis involving the PDA, LAD appears totally occluded in the proximal portion, ostial 8090 percent circumflex stenosis, free HERRERA to LAD is patent. Patient underwent successful PCI of the distal left circumflex and OM with Dr. Weiss. Echocardiogram revealed EF of 3540 % apical septal and apical lateral hypokinesis, consider apical ballooning syndrome, mild right ventricular enlargement with moderate to severe pulmonary hypertension. Moderate mitral and tricuspid regurgitation. 09/24/2021 patient underwent cardiac catheterization with Dr. Weiss with successful stenting of the PLV branch of the RCA 09/25/2021 Patient seen and examined at bedside, she states she is feeling well. She has no complaints. No further chest pain. No shortness of breath. She denies any lightheadedness dizziness orthopnea or PND. Her vital signs are stable. Sodium 135, potassium 4.5, BUN 28, serum creatinine 0.9 Blood pressure 138/75, heart rate 80, afebrile, saturations 94% on room air GENERAL: Well-appearing, well-nourished and in no acute distress. NECK: Supple without JVD LUNGS: Breath sounds clear to auscultation bilaterally. Respiration equal and unlabored. No wheezes, rales or rhonchi. HEART: Regular rate and rhythm without murmurs, rubs or gallops. S1 and S2 heard. EXTREMITIES: Normal range of motion, no edema. No clubbing or cyanosis. Peripheral pulses intact. SKIN: Right groin and Left groin cath sites, clean, dry no hematoma noted ASSESSMENT NSTEMI s/p PCI to OM and distal left circumflex on 09/22/2021, s/p PCI PLV branch of RCA on 09/24/2021 Ischemic cardiomyopathy EF40% Coronary artery disease status post CABG in [place] many years ago Hypertension Dyslipidemia, intolerant to statin therapy Hypothyroidism PLAN From a cardiology perspective, patient is stable to be discharged home. Continue dual antiplatelet therapy with aspirin and Plavix Continue Lasix 20mg BID, lisinopril 5mg daily Continue Zetia and beta sujatha Patient is intolerant to statin therapy Follow up outpatient with Dr. Simms and 12 weeks Nurse Practitioner note has been reviewed, I agree with a documented findings and plan of care. Patient was seen and examined. Objective - Vital Signs Vital signs: Vital Signs Temp 97.8 F 09/25/21 08:20 Pulse 88 09/25/21 08:20 Resp 16 09/25/21 08:20 BP 138/75 09/25/21 08:20 Pulse Ox 93 L 09/25/21 08:20 FiO2 Intake & Output 09/24/21 09/25/21 09/25/21 18:59 06:59 18:59 Intake Total 75 Output Total 1050 1100 Balance -975 -1100 Intake: IV 75 Output: Urine 1050 1100 Other: Voiding Method Toilet Toilet External Catheter # Voids 3 1 - Labs CBC & Chem 7: 09/24/21 07:23 09/25/21 06:32 Labs: Abnormal Lab Results - Last 24 Hours (Table) 09/24/21 09/24/21 09/24/21 Range/Units 11:41 16:44 20:04 Sodium (137-145) mmol/L Chloride (98-107) mmol/L Carbon Dioxide (22-30) mmol/L BUN (7-17) mg/dL Glucose (74-99) mg/dL POC Glucose (mg/dL) 117 H 180 H 295 H (70-110) mg/dL 09/25/21 09/25/21 Range/Units 05:48 06:32 Sodium 135 L (137-145) mmol/L Chloride 96 L (98-107) mmol/L Carbon Dioxide 33 H (22-30) mmol/L BUN 28 H (7-17) mg/dL Glucose 211 H (74-99) mg/dL POC Glucose (mg/dL) 213 H (70-110) mg/dL
[2021-09-25 11:48] LABS: Glucose,Whole Blood 243 mg/dL (70-110)
[2021-09-25 11:57] VITALS: BP 160/83; PULSE 74; RESP 18
--- NOTE | 2021-09-27 11:15 | P.DS ---
Providers Date of admission: 09/21/21 04:03 Expected date of discharge: 09/25/21 Attending physician: Racheal Nye Consults: 09/21/21 03:55 Consult Physician Urgent Consulting Provider: Glenn Weiss Consult Reason/Comments: Chest pain, elevated Troponini and D-Dimer Do you want consulting provider notified?: Yes, Notify in am 09/22/21 13:27 Consult Physician Routine Consulting Provider: [facility] Consult Reason/Comments: Post Interventional Patient Do you want consulting provider notified?: Already Contacted 09/24/21 15:29 Consult Physician Routine Consulting Provider: [facility] Consult Reason/Comments: Post Interventional Patient Do you want consulting provider notified?: Already Contacted [facility]: Final diagnosis -NSTEMI, with elevated troponin post PCI with stenting to the distal left circumflex and OM -CAD with prior CABG, with 2002 CABG, stent 2013 -Ischemic cardiomyopathy -Hypertension -Leukocytosis possible reactive -Dyslipidemia with allergy to statin -Moderate pulmonary hypertension -Diabetes mellitus type 2 with hyperglycemia, A1C 7.5 -Hypothyroidism -Ascending aortic aneurysm -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 Patient will follow-up with Dr. Amaya in the outpatient setting upon discharge. Patient is to follow up with Dr. Simms cardiology as scheduled. Total time taken is greater than 35 minutes. Hospital course This is a 85-year-old female who was recently admitted with chest pain,shortness of breath and NSTEMI. Patient was evaluated by cardiology and underwenting PCI stenting to the distal left circumflex and OM and needs close outpatient follow up with her drill runner helper Dr. Simms. Patient reports to feeling much better and is anxious to be discharged. Patient has been cleared by cardiology for discharge today. Currently no reports of chest pain, shortness of breath, or palpitations. Patient is afebrile. No reports of nausea or vomiting and patient is tolerating diet. Patient will be discharged home today. Guarded prognosis. Patient is NO code. Physical exam: Gen: This is a 85 year old female, awake alert and oriented x3. well developed, well nourished HEENT: Head is atraumatic, normocephalic. Pupils equal, round. Sclerae is anicteric. NECK: Supple. No JVD. No lymphadenopathy. No thyromegaly. LUNGS: diminished breath sounds bilaterally with No wheezes or rhonchi. No intercostal retractions. HEART: S1, S2 muffled ABDOMEN: Soft. Bowel sounds are present. No masses. No tenderness. EXTREMITIES: No pedal edema. No calf tenderness. NEUROLOGICAL: Patient is awake, alert and oriented x3. Cranial nerves 2 through 12 are grossly intact. Please refer to medication reconciliation sheet for a list of medications. The impression and plan of care has been dictated by Elisa Iverson, Nurse Practitioner as directed. Dr. Indio MD I have performed a history and examination and MDM of this patient, discussed the same with the dictator, and agree with the dictator's assessment and plan as written ,documented as a scribe. Based on total visit time, I have performed more than 50% of the visit. Patient Condition at Discharge: Stable Plan - Discharge Summary Discharge Rx Participant: No New Discharge Prescriptions: New Clopidogrel [Plavix] 75 mg PO DAILY #90 tab Nitroglycerin Sl Tabs [Nitrostat] 0.4 mg SUBLINGUAL Q5M PRN #25 tab PRN Reason: Chest Pain Furosemide [Lasix] 20 mg PO BID@0900,1600 #60 tab Metoprolol Tartrate [Lopressor] 50 mg PO BID #60 tab lisinopriL [Zestril] 5 mg PO DAILY #90 tab Magnesium Oxide [Mag-Ox] 400 mg PO DAILY #30 tab Continue Ezetimibe [Zetia] 10 mg PO DAILY glipiZIDE [Glucotrol] 5 mg PO DAILY Co Q-10 100mg 100 mg PO DAILY Zinc Gluconate [Zinc] 50 mg PO DAILY Levothyroxine Sodium [Synthroid] 112 mcg PO AC-BRKFST Aspirin [Adult Low Dose Aspirin EC] 81 mg PO DAILY Vitamin B-12 Oral Drops 125mcg/Drop 125 mcg PO DAILY Ascorbic Acid [Vitamin C] 1,000 mg PO DAILY Calcium Carb/Vitamin D3/Vit K1 [Calcium-Vit D3-K1 650 mg Chew] 1 tab PO BID Cholecalciferol [Vitamin D3 (25 Mcg = 1000 Iu)] 50 mcg PO DAILY Discontinued Labetalol [Trandate] 100 mg PO BID Discharge Medication List Ascorbic Acid [Vitamin C] 1,000 mg PO DAILY 09/21/21 [History] Aspirin [Adult Low Dose Aspirin EC] 81 mg PO DAILY 09/21/21 [History] Calcium Carb/Vitamin D3/Vit K1 [Calcium-Vit D3-K1 650 mg Chew] 1 tab PO BID 09/21/21 [History] Cholecalciferol [Vitamin D3 (25 Mcg = 1000 Iu)] 50 mcg PO DAILY 09/21/21 [History] Co Q-10 100mg 100 mg PO DAILY 09/21/21 [History] Ezetimibe [Zetia] 10 mg PO DAILY 09/21/21 [History] Levothyroxine Sodium [Synthroid] 112 mcg PO AC-BRKFST 09/21/21 [History] Vitamin B-12 Oral Drops 125mcg/Drop 125 mcg PO DAILY 09/21/21 [History] Zinc Gluconate [Zinc] 50 mg PO DAILY 09/21/21 [History] glipiZIDE [Glucotrol] 5 mg PO DAILY 09/21/21 [History] Clopidogrel [Plavix] 75 mg PO DAILY #90 tab 09/23/21 [Rx] Nitroglycerin Sl Tabs [Nitrostat] 0.4 mg SUBLINGUAL Q5M PRN #25 tab 09/23/21 [Rx] Furosemide [Lasix] 20 mg PO BID@0900,1600 #60 tab 09/25/21 [Rx] Magnesium Oxide [Mag-Ox] 400 mg PO DAILY #30 tab 09/25/21 [Rx] Metoprolol Tartrate [Lopressor] 50 mg PO BID #60 tab 09/25/21 [Rx] lisinopriL [Zestril] 5 mg PO DAILY #90 tab 09/25/21 [Rx] Follow up Appointment(s)/Referral(s): [facility], [NON-STAFF] - 1-2 Days Jermaine Simms MD [STAFF PHYSICIAN] - 2 Weeks (office will call you with date and time ) Cory Will MD [Primary Care Provider] - 1-2 days (make appointment with pcp ) Ambulatory/Diagnostic Orders: Complete Blood Count w/diff [LAB.AMB] Time Frame: 3 Days, Location: None Selected Patient Instructions/Handouts: Heart Catheterization (DC) Activity/Diet/Wound Care/Special Instructions: Cardiology Instructions After Cardiac Catheterization with Stent Placement: 1. Aspirin as anti-platelet therapy - Aspirin lessens the chance of heart attack and stroke. It helps prevent blood clots from forming, allowing the blood to flow more easily. Each day, you will take one 81 mg (non-enteric coated) tablet daily. You will be taking aspirin as a lifelong medication. Do not stop unless instructed by your doctor. 2. Anti-platelet Therapy. -In addition to aspirin, you will take ONE of the following anti-platelet medications daily. This will help prevent a clot from forming in your stent: Plavix (clopidogrel) -You will need to take your anti-platelet medicine every day for 12 months -Please consult your heart doctor before you stop this medicine. -They may want you to continue for a longer period of time. Other Medications: -ACEI/ Angiotensin II Receptor Eli (Lisinopril = Your medication)- can help your heart work better after a heart attack and decrease the amount of damage from a heart attack -Beta eli (Metoprolol tartrate = your medications). Is a medication that protects your heart from stress and can prevent future heart attacks. It can slow your heart rate. It can take weeks for your body to get used to a beta eli. The dose may need to be changed a few times as your body adjusts Do not stop taking these medicines without talking to your doctor. -Take all other medicines as directed by your doctor. Do not take any extra aspirin or ibuprofen. They can increase your risk of bleeding. Many aild-mbe-vaxxicr drugs contain aspirin. If you are unsure about what the drug contains, check with your pharmacist before taking it. -For mild discomfort, you may take plain Tylenol (acetaminophen). Follow dose directions, but do not take more than 4,000 mg of acetaminophen in 24 hours. Contact your doctor right away or go to the nearest hospital Emergency Room if you have: -Severe angina or chest pain. (This may be a sign of a problem with your stent.) -Excessive bruising, blood in urine/stool or black tarry stools. Healthy LifeStyle It is important to keep a heart healthy lifestyle. This can improve your long- term health and decrease your risk for heart attacks. -Quitting tobacco: the most important thing you can do to protect your health. -Managing your blood cholesterol, blood pressure, weight, and stress. -The importance of regular exercise. -Heart Healthy Diet: Include more plants in your diet. Eat lots of fresh vegetables and fresh fruits. Eat good fats: plant based oils, avocado, nuts, beans, legumes. Eat more seafood. Limit Meat. Switch to whole grains. -Avoid fried foods and animal fats and processed meats Follow up with [facility], Briana Arce [phone] Follow-up with primary care provider on discharge Follow-up cardiology as discussed Continue heart healthy diabetic diet Continue taking medications as prescribed Monitor blood sugars before meals and at bedtime and keep a diary for primary care follow-up Avoid any excess sugar intake as blood sugars have been slightly elevated and discuss with her primary care provider Recommend repeat labs in 2-3 days Recommend continue using incentive spirometer at least 5-10 times daily Discharge Disposition: HOME WITH HOME HEALTH SERVICES
== END 2021-09-25 14:03 | disposition home health service (06) | DRG 247 ==
LOC: EC 20:24 → 3SCARD 09-21 04:03
PROVIDERS: ADMIT Family Medicine; ATTEND Family Medicine
PROC: 4A023N7 Measurement of Cardiac Sampling and Pressure, Left Heart, Percutaneous Approach (ICD-10-PCS; principal; 2021-09-21)
PROC: B2131ZZ Fluoroscopy of Multiple Coronary Artery Bypass Grafts using Low Osmolar Contrast (ICD-10-PCS; 2021-09-21)
PROC: 027135Z Dilation of Coronary Artery, Two Arteries with Two Drug-eluting Intraluminal Devices, Percutaneous Approach (ICD-10-PCS; 2021-09-22 11:15)
PROC: 027034Z Dilation of Coronary Artery, One Artery with Drug-eluting Intraluminal Device, Percutaneous Approach (ICD-10-PCS; 2021-09-24)
DX: I21.4 Non-ST elevation (NSTEMI) myocardial infarction (principal); I25.719 Atherosclerosis of autologous vein coronary artery bypass graft(s) with unspecified angina pectoris; I27.20 Pulmonary hypertension, unspecified; E11.51 Type 2 diabetes mellitus with diabetic peripheral angiopathy without gangrene; I71.2 Thoracic aortic aneurysm, without rupture; E03.9 Hypothyroidism, unspecified; I10 Essential (primary) hypertension; I70.1 Atherosclerosis of renal artery; I70.201 Unspecified atherosclerosis of native arteries of extremities, right leg; E11.65 Type 2 diabetes mellitus with hyperglycemia; I08.1 Rheumatic disorders of both mitral and tricuspid valves; I25.84 Coronary atherosclerosis due to calcified coronary lesion; J84.10 Pulmonary fibrosis, unspecified; D72.828 Other elevated white blood cell count; I25.119 Atherosclerotic heart disease of native coronary artery with unspecified angina pectoris; I25.5 Ischemic cardiomyopathy; K57.30 Diverticulosis of large intestine without perforation or abscess without bleeding; E78.5 Hyperlipidemia, unspecified; Z66 Do not resuscitate; Z95.1 Presence of aortocoronary bypass graft; Z95.5 Presence of coronary angioplasty implant and graft; Z79.82 Long term (current) use of aspirin; Z79.899 Other long term (current) drug therapy; Z79.890 Hormone replacement therapy; Z79.84 Long term (current) use of oral hypoglycemic drugs; Z88.6 Allergy status to analgesic agent; Z88.1 Allergy status to other antibiotic agents; Z88.8 Allergy status to other drugs, medicaments and biological substances; Z88.0 Allergy status to penicillin; Z91.041 Radiographic dye allergy status; Z88.2 Allergy status to sulfonamides; Z91.02 Food additives allergy status; Z83.3 Family history of diabetes mellitus; Z82.3 Family history of stroke
CPT/HCPCS: 36415; 71045; 71046; 71275; 74174; 80048; 80053; 80061; 81001; 83036; 83690; 83735; 83880; 84439; 84443; 84484; 85025; 85379; 85610; 85730; 87086; 93005; 93306; 93455; 96365; 96375; 99285